=== PATIENT | female | born 1975 | race Caucasian/White ===

== ENCOUNTER 2016-12-01 14:09 | Inpatient (IN) | payer OTHER ==
[~2016-12-01 14:09] MED LIST: PIPERACILLIN-TAZOBACTAM 3.375 GM in DEXTROSE/WATER 1 50ML.BAG IVPB SCH
[2016-12-01] MEDS ORDERED: SODIUM CHLORIDE 0.9% 1,000 ML IV STA (15:56)
[2016-12-01] MEDS ORDERED: ONDANSETRON 4 MG/2 ML VIAL IVP STA (15:56)
[2016-12-01] MEDS ORDERED: HYDROmorphone 1 MG/ML 1 ML SYRINGE IVP STA ×2 (15:56→18:30)
--- NOTE | 2016-12-01 16:19 | ED ---
Abdominal Pain HPI - General Chief Complaint: Abdominal Pain Stated Complaint: Abd pain Time Seen by Provider: 12/01/16 15:52 Source: patient Mode of arrival: ambulatory Limitations: no limitations - History of Present Illness Initial Comments: 41-year-old female patient presents to emergency department today for complaints of abdominal pain that started 3 days ago. Patient states that the pain started as a vague pain around her umbilicus and has worsened over the last couple of days. Patient states that it is now in the right lower quadrant , she describes as severe, sharp pain that radiates around to her back. Patient states the pain increases with any movement, breathing, and states the area is very tender to the touch. Patient denies any fevers but states she has been feeling chilled. She is reporting nausea but no vomiting. Patient denies any constipation, diarrhea, hematuria, dysuria, urinary frequency, or urinary urgency. Patient denies any shortness of breath, chest pain, dizziness, weakness, or dizziness. She denies any history of abdominal surgery. - Related Data Home Medications Medication Instructions Recorded Confirmed Levothyroxine Sodium [Synthroid] 150 mcg PO DAILY 12/01/16 12/01/16 Allergies Allergy/AdvReac Type Severity Reaction Status Date / Time No Known Allergies Allergy Verified 12/01/16 17:26 Review of Systems ROS Statement: Those systems with pertinent positive or pertinent negative responses have been documented in the HPI. ROS Other: All systems not noted in ROS Statement are negative. Past Medical History Additional Past Medical History / Comment(s): graves disease History of Any Multi-Drug Resistant Organisms: None Reported Past Surgical History: Tubal Ligation Past Psychological History: No Psychological Hx Reported Smoking Status: Current every day smoker Past Alcohol Use History: Occasional Past Drug Use History: None Reported General Exam Limitations: no limitations General appearance: alert, in no apparent distress Head exam: Present: atraumatic, normocephalic, normal inspection Eye exam: Present: normal appearance, PERRL, EOMI. Absent: scleral icterus, conjunctival injection, periorbital swelling ENT exam: Present: normal exam, normal oropharynx, mucous membranes moist Neck exam: Present: normal inspection. Absent: tenderness, meningismus, lymphadenopathy Respiratory exam: Present: normal lung sounds bilaterally. Absent: respiratory distress, wheezes, rales, rhonchi, stridor Cardiovascular Exam: Present: regular rate, normal rhythm, normal heart sounds. Absent: systolic murmur, diastolic murmur, rubs, gallop, clicks GI/Abdominal exam: Present: soft, tenderness (Lower quadrant), rebound, normal bowel sounds. Absent: distended, guarding, rigid, organomegaly, hernia Expanded GI/Abdominal exam: Present: psoas sign, obturator sign, Rovsing's sign, tenderness at McBurney's Point Extremities exam: Present: normal inspection, full ROM, normal capillary refill. Absent: tenderness, pedal edema, joint swelling, calf tenderness Back exam: Present: normal inspection. Absent: tenderness, CVA tenderness (R), CVA tenderness (L) Neurological exam: Present: alert, oriented X3, CN II-XII intact Psychiatric exam: Present: normal affect, normal mood Skin exam: Present: warm, dry, intact, normal color. Absent: rash Course Vital Signs 12/01/16 12/01/16 14:19 18:04 Temperature 98.1 F Pulse Rate 114 H 95 Respiratory 20 16 Rate Blood Pressure 115/68 116/57 O2 Sat by Pulse 98 98 Oximetry Medical Decision Making - Medical Decision Making Dr. Soto did discuss case with Dr. Hope ritter and Dr. Meade. Patient only admitted to Dr. Nolasco's service and will be evaluated in the morning. Patient was started on antibiotics. - Lab Data Result diagrams: 12/01/16 16:20 12/01/16 16:20 Lab Results 12/01/16 12/01/16 12/01/16 Range/Units 16:20 16:20 16:20 WBC 14.2 H (3.8-10.6) k/uL RBC 3.79 L (3.80-5.40) m/uL Hgb 12.6 (11.4-16.0) gm/dL Hct 36.3 (34.0-46.0) % MCV 95.8 (80.0-100.0) fL MCH 33.3 (25.0-35.0) pg MCHC 34.7 (31.0-37.0) g/dL RDW 13.2 (11.5-15.5) % Plt Count 298 (150-450) k/uL Neutrophils % 80 % Lymphocytes % 12 % Monocytes % 5 % Eosinophils % 2 % Basophils % 0 % Neutrophils # 11.3 H (1.3-7.7) k/uL Lymphocytes # 1.7 (1.0-4.8) k/uL Monocytes # 0.6 (0-1.0) k/uL Eosinophils # 0.3 (0-0.7) k/uL Basophils # 0.0 (0-0.2) k/uL Sodium 140 (137-145) mmol/L Potassium 3.6 (3.5-5.1) mmol/L Chloride 106 (98-107) mmol/L Carbon Dioxide 21 L (22-30) mmol/L Anion Gap 13 mmol/L BUN 7 (7-17) mg/dL Creatinine 0.57 (0.52-1.04) mg/dL Est GFR (MDRD) Af Amer >60 (>60 ml/min/1.73 sqM) Est GFR (MDRD) Non-Af >60 (>60 ml/min/1.73 sqM) Glucose 106 H (74-99) mg/dL Plasma Lactic Acid Victor Hugo 0.7 (0.7-2.0) mmol/L Calcium 9.3 (8.4-10.2) mg/dL Total Bilirubin 0.8 (0.2-1.3) mg/dL AST 16 (14-36) U/L ALT 29 (9-52) U/L Alkaline Phosphatase 72 (38-126) U/L Total Protein 6.9 (6.3-8.2) g/dL Albumin 3.9 (3.5-5.0) g/dL Amylase 44 (30-110) U/L Lipase 78 (23-300) U/L Urine Color Urine Appearance (Clear) Urine pH (5.0-8.0) Ur Specific [place] (1.001-1.035) Urine Protein (Negative) Urine Glucose (UA) (Negative) Urine Ketones (Negative) Urine Blood (Negative) Urine Nitrite (Negative) Urine Bilirubin (Negative) Urine Urobilinogen (<2.0) mg/dL Ur Leukocyte Esterase (Negative) Urine RBC (0-5) /hpf Ur Squamous Epith Cells (0-4) /hpf Urine Bacteria (None) /hpf Urine Mucus (None) /hpf 12/01/16 Range/Units 16:20 WBC (3.8-10.6) k/uL RBC (3.80-5.40) m/uL Hgb (11.4-16.0) gm/dL Hct (34.0-46.0) % MCV (80.0-100.0) fL MCH (25.0-35.0) pg MCHC (31.0-37.0) g/dL RDW (11.5-15.5) % Plt Count (150-450) k/uL Neutrophils % % Lymphocytes % % Monocytes % % Eosinophils % % Basophils % % Neutrophils # (1.3-7.7) k/uL Lymphocytes # (1.0-4.8) k/uL Monocytes # (0-1.0) k/uL Eosinophils # (0-0.7) k/uL Basophils # (0-0.2) k/uL Sodium (137-145) mmol/L Potassium (3.5-5.1) mmol/L Chloride (98-107) mmol/L Carbon Dioxide (22-30) mmol/L Anion Gap mmol/L BUN (7-17) mg/dL Creatinine (0.52-1.04) mg/dL Est GFR (MDRD) Af Amer (>60 ml/min/1.73 sqM) Est GFR (MDRD) Non-Af (>60 ml/min/1.73 sqM) Glucose (74-99) mg/dL Plasma Lactic Acid Victor Hugo (0.7-2.0) mmol/L Calcium (8.4-10.2) mg/dL Total Bilirubin (0.2-1.3) mg/dL AST (14-36) U/L ALT (9-52) U/L Alkaline Phosphatase (38-126) U/L Total Protein (6.3-8.2) g/dL Albumin (3.5-5.0) g/dL Amylase (30-110) U/L Lipase (23-300) U/L Urine Color Dark Brown Urine Appearance Cloudy H (Clear) Urine pH 6.0 (5.0-8.0) Ur Specific [place] 1.026 (1.001-1.035) Urine Protein 1+ H (Negative) Urine Glucose (UA) Negative (Negative) Urine Ketones 1+ H (Negative) Urine Blood Moderate H (Negative) Urine Nitrite Negative (Negative) Urine Bilirubin 1+ H (Negative) Urine Urobilinogen 3.0 (<2.0) mg/dL Ur Leukocyte Esterase Trace H (Negative) Urine RBC 115 H (0-5) /hpf Ur Squamous Epith Cells 5 H (0-4) /hpf Urine Bacteria Rare H (None) /hpf Urine Mucus Many H (None) /hpf Disposition Clinical Impression: Diverticulitis of intestine with perforation and abscess Disposition: ADMITTED IP TO THIS HOSP Condition: Fair
[2016-12-01 16:50] LABS: Appearance,Urine Cloudy (Clear); Bacteria,Urine Rare /hpf; Bilirubin,Urine 1+ (Negative); Glucose,Urine (UA) Negative (Negative); Ketones,Urine 1+ (Negative); Leukocyte Esterase,Urine Trace (Negative); Mucus,Urine Many /hpf; Nitrite,Urine Negative (Negative); Particle Count 15888; Protein,Urine 1+ (Negative); RBC,Urine 115 /hpf (0-5); Specific Gravity,Urine 1.026 (1.001-1.035); Squamous Epithelial Cell,Urine 5 /hpf (0-4); UA Billing (MACRO vs. MICRO) MICRO
[2016-12-01 16:51] LABS: Basophils % (A) 0 %; CH 34.1; CHCM 35.7; Eosinophils # (A) 0.3 k/uL (0-0.7); Eosinophils % (A) 2 %; HCT 36.3 % (34.0-46.0); HDW 2.38; HGB 12.6 gm/dL (11.4-16.0); Luc # (Auto) 0.19; Luc % (Auto) 1; Lymphocytes # (A) 1.7 k/uL (1.0-4.8); Lymphocytes % (A) 12 %; MCH 33.3 pg (25.0-35.0); MCHC 34.7 g/dL (31.0-37.0); MCV 95.8 fL (80.0-100.0); Mean Platelet Volume 7.2; Monocytes # (A) 0.6 k/uL (0-1.0); Monocytes % (A) 5 %; Neutrophils # (A) 11.3 k/uL (1.3-7.7); Neutrophils % (A) 80 %; RBC 3.79 m/uL (3.80-5.40); RDW 13.2 % (11.5-15.5); WBC 14.2 k/uL (3.8-10.6); WBC (Perox) 14.83
[2016-12-01 16:53] LABS: ALT 29 U/L (9-52); AST 16 U/L (14-36); Alkaline Phosphatase 72 U/L (38-126); Amylase 44 U/L (30-110); Anion Gap 13 mmol/L; Blood Urea Nitrogen 7 mg/dL (7-17); Calcium 9.3 mg/dL (8.4-10.2); Carbon Dioxide 21 mmol/L (22-30); Chloride 106 mmol/L (98-107); Glucose 106 mg/dL (74-99); Non-African American GFR(MDRD) >60 (>60 ml/min/1.73 sqM); Potassium 3.6 mmol/L (3.5-5.1); Sodium 140 mmol/L (137-145); Total Bilirubin 0.8 mg/dL (0.2-1.3); Total Protein 6.9 g/dL (6.3-8.2)
[2016-12-01] MEDS ORDERED: RX INFO: IV CONTRAST WAS GIVEN 1 EACH MISC MISCELLANE PRN (17:01)
--- NOTE | 2016-12-01 17:20 | XR ---
EXAMINATION TYPE: XR KUB DATE OF EXAM: 12/01/2016 4:44 PM COMPARISON: NONE HISTORY: Abdominal pain TECHNIQUE: 2 views FINDINGS: Bowel gas pattern is normal. There is no sign of intestinal obstruction or pneumoperitoneum . Fecal pattern is normal. There are clips from tubal ligation. Lung bases are clear. IMPRESSION: Nonacute abdomen.
--- NOTE | 2016-12-01 18:02 | CT ---
EXAMINATION TYPE: CT abdomen pelvis w con DATE OF EXAM: 12/01/2016 5:50 PM COMPARISON: NONE HISTORY: Patient complains of RLQ pain. CT DLP: 1134 mGycm Automated exposure control for dose reduction was used. TECHNIQUE: Helical acquisition of images was performed from the lung bases through the pelvis. CONTRAST: Performed without Oral Contrast and with IV Contrast, patient injected with 100 mL of Omnipaque 300. FINDINGS: There is mild atelectasis at the posterior lung bases. There is no pleural effusion. There is a hiata l hernia. Heart size is normal. Liver spleen pancreas gallbladder appear normal. Bile ducts are not dilated. There is no adrenal mass . There is a 2 cm cyst in the upper pole right kidney posteriorly. There is a possible 3 mm calcifica tion within the cyst. This could be a calyceal diverticulum. The left kidney appears normal. There is no hydronephrosis. There are inflammatory changes around the cecum. There is a 3 cm area of complex air medial to the ce cum and anterior to the terminal ileum. This appears to be an extraluminal mass. The bladder distends smoothly. There is a 3 cm cyst on the right ovary. There are clips from tubal li gation. I see no definite free fluid in the pelvis. There is no retroperitoneal adenopathy. The bony structures are intact. There is narrowing of the L5-S1 disc space with spurring of the endplates. IMPRESSION: THERE IS A 3 CM COMPLEX COLLECTION OF AIR WITH SURROUNDING INFLAMMATORY CHANGES MEDIAL TO THE CECUM. THIS APPEARS TO BE EXTRALUMINAL AIR AND RELATED TO AN ABSCESS. I WOULD CONSIDER POSSIBILITY OF PERFOR ATED DIVERTICULUM WITH ABSCESS, I do not think this is an appendicitis since and fairly normal-appearing appendix appears to be prese nt inferiorly at the tip of the cecum. Surgical follow-up is recommended. There is a complex cystic fluid collection on the upper pole right kidney that appears to have delaye d contrast and is related to a calyceal diverticulum that contains a small calculus. Hiatal hernia.
[2016-12-01] MEDS ORDERED: PIPERACILLIN-TAZOBACTAM 3.375 GM in DEXTROSE/WATER 1 50ML.BAG IVPB STA (18:30)
[2016-12-01] MEDS ORDERED: NALOXONE 0.4 MG/ML 1 ML VIAL IV PRN (18:31)
[2016-12-01] MEDS ORDERED: LORazepam 2 MG/ML SYRINGE IV PRN (18:31)
[2016-12-01] MEDS ORDERED: ONDANSETRON 4 MG/2 ML VIAL IVP PRN (18:31)
[2016-12-01] MEDS: SODIUM CHLORIDE 0.9% 1,000 ML IV SCH (18:55)
[2016-12-01] MEDS: HYDROmorphone 1 MG/ML 1 ML SYRINGE IV PRN ×2 (18:58→22:06)
[2016-12-01] MEDS ORDERED: NICOTINE 21MG/24HR PATCH TRANSDERM STA (19:33)
[2016-12-01] MEDS: PIPERACILLIN-TAZOBACTAM 3.375 GM in DEXTROSE/WATER 1 50ML.BAG IVPB SCH (23:59)
[2016-12-02] MEDS: SODIUM CHLORIDE 0.9% 1,000 ML IV SCH (02:00)
[2016-12-02] MEDS: HYDROmorphone 1 MG/ML 1 ML SYRINGE IV PRN ×2 (05:33→08:44)
[2016-12-02] MEDS ORDERED: NICOTINE 14MG/24HR PATCH TRANSDERM STA (06:56)
[2016-12-02] MEDS: PANTOPRAZOLE 40 MG/10 ML VIAL IV SCH (07:03)
[2016-12-02] MEDS: PIPERACILLIN-TAZOBACTAM 3.375 GM in DEXTROSE/WATER 1 50ML.BAG IVPB SCH ×2 (08:37→15:10)
--- NOTE | 2016-12-02 09:42 | P.GSHP ---
<Berlin Wesley D - Last Filed: 12/02/16 09:21> History of Present Illness H&P Date: 12/02/16 Chief Complaint: Abdominal pain Patient is a 41-year-old white female, patient of Dr. Jamar Stewart in the outpatient setting, with medical history significant for Graves' disease and surgical history significant for tubal occasion, presenting to the emergency department with complaints of right lower quadrant abdominal pain onset approximately 3 days ago. Patient did have one episode of vomiting and diarrhea on Friday. Patient states she thought she had the flu. Labs on admission with evidence of leukocytosis with WBC of 14.2. No evidence of fevers. Heart rate 114 on admission. No history of fevers, chills, shortness of breath, or chest pain. CT of the abdomen and pelvis with evidence of a 3 cm complex collection of air with surrounding inflammatory changes medial to the cecum appearing to be extraluminal air and related to an abscess with possible diagnosis of perforated diverticulum with abscess. Patient also has evidence of a hiatal hernia. Patient was given a fluid bolus 1 L normal saline, started on IV antibiotics in the form of Zosyn, and admitted to the surgical unit. Upon examination, patient complains of right lower quadrant pain ,described as sharp, currently rated 6 out of 10 at rest, 10 out of 10 with movement. Patient denies chills, fevers, nausea, vomiting, shortness of breath, chest pain. Patient is passing flatus with no bowel movements. Morning labs pending. Past Medical History Additional Past Medical History / Comment(s): graves disease History of Any Multi-Drug Resistant Organisms: None Reported Past Surgical History: Tubal Ligation Past Psychological History: No Psychological Hx Reported Smoking Status: Current every day smoker Past Alcohol Use History: Occasional Past Drug Use History: None Reported Medications and Allergies Home Medications Medication Instructions Recorded Confirmed Type Levothyroxine Sodium [Synthroid] 150 mcg PO DAILY 12/01/16 12/01/16 History Allergies Allergy/AdvReac Type Severity Reaction Status Date / Time No Known Allergies Allergy Verified 12/01/16 17:26 Surgical - Exam Vital Signs Temp Pulse Resp BP Pulse Ox 98.1 F 114 H 20 115/68 98 12/01/16 14:19 12/01/16 14:19 12/01/16 14:19 12/01/16 14:19 12/01/16 14:19 GENERAL: Pt awake and alert, well-appearing, well-nourished, and in no acute distress. HEAD: Atraumatic, normocephalic. EYES: Pupils equal, round, and reactive to light, sclera anicteric, conjunctiva are normal. ENT: Moist mucous membranes. NECK:Normal range of motion, supple without lymphadenopathy or JVD. LUNGS: Breath sounds clear to auscultation bilaterally. No wheezes, rales, or rhonchi. HEART: Heart S1, S2, no S3 or S4. Regular rate and rhythm. No murmurs, rubs or gallops. ABDOMEN: Soft, moderate right lower quadrant tenderness, nondistended, normoactive bowel sounds. Positive guarding, positive rebound. No masses or organomegaly appreciated. EXTREMITIES: Palpable peripheral pulses. No edema. No calf tenderness. NEUROLOGICAL: Pt oriented x 3. No focal deficits noted. Strength and sensation grossly intact. PSYCH: Normal mood, normal affect. SKIN: Warm, dry, intact. Normal turgor. No rashes or lesions. Results - Labs 12/01/16 16:20 12/01/16 16:20 - Imaging Abdominal x-ray: report reviewed (Nonacute abdomen) CT scan - abdomen: report reviewed CT scan - pelvis: report reviewed Assessment and Plan Plan: Impression: 1. Right lower quadrant abdominal pain suspect secondary to perforated diverticulum with abscess. 2. Hiatal hernia. 3. Possible sepsis. 4. Nicotine dependence. 5. History of Graves' disease. 6. History of tubal ligation. Plan: 1. Keep patient nothing by mouth. Continue IV antibiotics. Continue IV fluids. Continue GI prophylaxis. Continue supportive treatment pain management. Dr. Stewart has been consulted for medical management. The above impression and plan have been discussed and directed by Dr. Ramirez. [place] VENTURA acting as scribe for Dr. Ramirez. <Carrillo Ramirez - Last Filed: 12/02/16 10:02> Surgical - Exam Vital Signs Temp Pulse Resp BP Pulse Ox 98.1 F 114 H 20 115/68 98 12/01/16 14:19 12/01/16 14:19 12/01/16 14:19 12/01/16 14:19 12/01/16 14:19 Results - Labs 12/02/16 09:20 12/02/16 09:20 Abnormal Lab Results - Last 24 Hours (Table) 12/02/16 12/02/16 Range/Units 09:20 09:20 WBC 12.6 H (3.8-10.6) k/uL RBC 3.43 L (3.80-5.40) m/uL Hct 33.4 L (34.0-46.0) % Neutrophils # 10.1 H (1.3-7.7) k/uL Chloride 108 H (98-107) mmol/L BUN 6 L (7-17) mg/dL Diabetes panel 12/02/16 Range/Units 09:20 Sodium 140 (137-145) mmol/L Potassium 4.0 (3.5-5.1) mmol/L Chloride 108 H (98-107) mmol/L Carbon Dioxide 24 (22-30) mmol/L BUN 6 L (7-17) mg/dL Creatinine 0.62 (0.52-1.04) mg/dL Glucose 92 (74-99) mg/dL Calcium 8.5 (8.4-10.2) mg/dL Calcium panel 12/02/16 Range/Units 09:20 Calcium 8.5 (8.4-10.2) mg/dL Pituitary panel 12/02/16 Range/Units 09:20 Sodium 140 (137-145) mmol/L Potassium 4.0 (3.5-5.1) mmol/L Chloride 108 H (98-107) mmol/L Carbon Dioxide 24 (22-30) mmol/L BUN 6 L (7-17) mg/dL Creatinine 0.62 (0.52-1.04) mg/dL Glucose 92 (74-99) mg/dL Calcium 8.5 (8.4-10.2) mg/dL Adrenal panel 12/02/16 Range/Units 09:20 Sodium 140 (137-145) mmol/L Potassium 4.0 (3.5-5.1) mmol/L Chloride 108 H (98-107) mmol/L Carbon Dioxide 24 (22-30) mmol/L BUN 6 L (7-17) mg/dL Creatinine 0.62 (0.52-1.04) mg/dL Glucose 92 (74-99) mg/dL Calcium 8.5 (8.4-10.2) mg/dL Assessment and Plan Plan: The patient has peritoneal signs with rebound tenderness and guarding. She will undergo laparoscopic exam today. I discussed with her that she may need exploratory laparotomy. We will plan for laparoscopic appendectomy.
[2016-12-02 09:43] LABS: Basophils # (A) 0.1 k/uL (0-0.2); Basophils % (A) 0 %; CH 33.8; Eosinophils # (A) 0.3 k/uL (0-0.7); Eosinophils % (A) 3 %; HCT 33.4 % (34.0-46.0); HDW 2.49; HGB 11.4 gm/dL (11.4-16.0); Luc # (Auto) 0.21; Luc % (Auto) 2; Lymphocytes # (A) 1.4 k/uL (1.0-4.8); Lymphocytes % (A) 11 %; MCH 33.2 pg (25.0-35.0); MCHC 34.2 g/dL (31.0-37.0); MCV 97.1 fL (80.0-100.0); Monocytes # (A) 0.4 k/uL (0-1.0); Monocytes % (A) 3 %; Neutrophils # (A) 10.1 k/uL (1.3-7.7); Neutrophils % (A) 80 %; RBC 3.43 m/uL (3.80-5.40); RDW 12.9 % (11.5-15.5); WBC 12.6 k/uL (3.8-10.6); WBC (Perox) 13.66
[2016-12-02 09:54] LABS: Anion Gap 8 mmol/L; Blood Urea Nitrogen 6 mg/dL (7-17); Calcium 8.5 mg/dL (8.4-10.2); Carbon Dioxide 24 mmol/L (22-30); Chloride 108 mmol/L (98-107); Glucose 92 mg/dL (74-99); Non-African American GFR(MDRD) >60 (>60 ml/min/1.73 sqM); Sodium 140 mmol/L (137-145)
[2016-12-02] MEDS ORDERED: IV FLUID CONTINUATION 1,000 ML IV ONE (10:35)
[2016-12-02] MEDS ORDERED: HEPARIN SODIUM,PORCINE 5,000 UNIT/ML 1 ML VIAL SQ ONE (11:04)
[2016-12-02] MEDS ORDERED: ROCURONIUM BROMIDE 10 MG/ML 10 ML VIAL IV ONE (11:09)
[2016-12-02] MEDS ORDERED: LIDOCAINE 1% INJ 10MG/ML (20 ML MDV) ONE (11:09)
[2016-12-02] MEDS ORDERED: NEOSTIGMINE 1 MG/ML 10 ML VIAL ONE (11:09)
[2016-12-02] MEDS ORDERED: SUCCINYLCHOLINE CHLORIDE 100 MG/5 ML SYR IV ONE (11:09)
[2016-12-02] MEDS ORDERED: GLYCOPYRROLATE 0.2 MG/ML 2 ML VIAL ONE (11:09)
[2016-12-02] MEDS ORDERED: fentaNYL (PF) 50 MCG/ML 2 ML AMP ONE (11:09)
[2016-12-02] MEDS ORDERED: MIDAZOLAM 2 MG/2 ML VIAL ONE (11:09)
[2016-12-02] MEDS ORDERED: BUPIVACAIN-EPI 0.25%-1:200,000 30 ML VIAL SQ ONE (11:29)
[2016-12-02] MEDS ORDERED: LACTATED RINGERS 1,000 ML IV ONE (11:44)
--- NOTE | 2016-12-02 12:41 | P.OP ---
Date of Procedure: 12/02/16 Preoperative Diagnosis: Appendicitis with abscess Postoperative Diagnosis: Transmural cecal abscess Procedure(s) Performed: Diagnostic laparoscopy Laparoscopic right colectomy Partial omentectomy Anesthesia: TIM Surgeon: Carrillo Ramirez Estimated Blood Loss (ml): 10 Pathology: other (Cecum, omentum) Condition: stable Disposition: PACU Description of Procedure: The patient's placed on the operative table in the supine position. She received general anesthesia. Her abdomen was prepped and draped usual sterile fashion. An infraumbilical skin incision was made and then using a pair of Lagrange clamps the fascia was grasped. The Veress needle was then placed into the. Cavity. Position of the Veress needle was confirmed with positive drop test. After adequate insufflation a 5 mm trocar was placed into the perineal cavity. And then the laparoscope was placed into the pleural cavity. Next a 5 mm trocar was placed in the supraumbilical position and a 10 mm trocar was placed in the midline epigastric position. The cecum was visualized. The cecum appeared to be inflamed. The cecum was then grasped and then rotated medially. The white line of Toldt was divided. The appendix was visualized. The appendix did not appear to be significantly inflamed. The year appeared to be a abscess within the wall of the cecum near the base the appendix. At this point the right colon was mobilized by dividing the white line of Toldt's. And then the terminal ileum was also mobilized by dividing any adhesions to the terminal ileum. The trochars are withdrawn and then a small skin incision was extended at the umbilical trocar. And then the fascia was divided. The terminal ileum and cecum were brought up into the wound. There appeared to be significant inflammatory changes in the cecal wall. The terminal ileum was then transected with the JUAN stapler. And then the right colon was transected with a GI stapler. Using the Harmonic scissors the right mesial colon was divided. The specimen was sent to pathology. And then a [id number] functional end-to-end staple anastomosis created between the terminal ileum and's right colon. A 3-0 GI silk sutures placed as a crotch stitch. There is no bleeding of the mesentery. This point the anastomosis was placed back into the peritoneal cavity. The fascia was closed with #1 Vicryl. Skin closed interrupted 3-0 Monocryl suture. Dermabond dressings was applied. Patient was sent to recovery in stable condition.
[2016-12-02] MEDS: HYDROmorphone 1 MG/ML 1 ML SYRINGE IVP ONE ×2 (12:59→13:20)
[2016-12-02] MEDS: KETOROLAC 30 MG/ML 1 ML VIAL IVP PRN (13:25)
[2016-12-02] MEDS ORDERED: HYDROmorphone 1 MG/ML 1 ML SYRINGE IVP ONE (13:31)
[2016-12-02] MEDS: ONDANSETRON 4 MG/2 ML VIAL IVP PRN (13:41)
[2016-12-02] MEDS: D5-0.45% NACL WITH KCL 20MEQ/L 1,000 ML IV SCH ×2 (15:06→23:25)
[2016-12-02] MEDS: HYDROmorphone 1 MG/ML 1 ML SYRINGE IVP PRN ×3 (16:25→23:06)
[2016-12-02] MEDS: HEPARIN SODIUM,PORCINE 5,000 UNIT/ML 1 ML VIAL SQ SCH (16:28)
[2016-12-02] MEDS: METOCLOPRAMIDE 5 MG/ML 2 ML VIAL IVP SCH (16:29)
[2016-12-02] MEDS: ALVIMOPAN 12 MG CAPSULE PO SCH (21:32)
[2016-12-03] MEDS: HEPARIN SODIUM,PORCINE 5,000 UNIT/ML 1 ML VIAL SQ SCH ×4 (00:46→23:42)
[2016-12-03] MEDS: PIPERACILLIN-TAZOBACTAM 3.375 GM in DEXTROSE/WATER 1 50ML.BAG IVPB SCH ×4 (00:47→23:42)
[2016-12-03] MEDS: METOCLOPRAMIDE 5 MG/ML 2 ML VIAL IVP SCH ×5 (00:47→23:42)
[2016-12-03] MEDS: HYDROmorphone 1 MG/ML 1 ML SYRINGE IVP PRN ×7 (03:11→23:43)
[2016-12-03] MEDS: KETOROLAC 30 MG/ML 1 ML VIAL IVP PRN (05:32)
[2016-12-03] MEDS: D5-0.45% NACL WITH KCL 20MEQ/L 1,000 ML IV SCH ×3 (05:52→20:52)
[2016-12-03] MEDS: LEVOTHYROXINE 75 MCG TAB PO SCH (06:17)
[2016-12-03 07:34] LABS: Basophils % (A) 0 %; CH 33.3; CHCM 34.2; Eosinophils # (A) 0.1 k/uL (0-0.7); Eosinophils % (A) 1 %; HCT 31.5 % (34.0-46.0); HGB 10.8 gm/dL (11.4-16.0); Luc # (Auto) 0.16; Luc % (Auto) 2; Lymphocytes # (A) 1.2 k/uL (1.0-4.8); Lymphocytes % (A) 11 %; MCH 33.4 pg (25.0-35.0); MCHC 34.2 g/dL (31.0-37.0); MCV 97.8 fL (80.0-100.0); Mean Platelet Volume 7.5; Monocytes # (A) 0.5 k/uL (0-1.0); Monocytes % (A) 5 %; Neutrophils # (A) 8.6 k/uL (1.3-7.7); Neutrophils % (A) 82 %; RBC 3.22 m/uL (3.80-5.40); WBC 10.5 k/uL (3.8-10.6); WBC (Perox) 10.97
[2016-12-03] MEDS: NICOTINE 21MG/24HR PATCH TRANSDERM SCH (07:35)
[2016-12-03] MEDS: PANTOPRAZOLE 40 MG/10 ML VIAL IV SCH (07:35)
[2016-12-03] MEDS: ALVIMOPAN 12 MG CAPSULE PO SCH ×2 (07:35→20:59)
[2016-12-03 07:51] LABS: Anion Gap 9 mmol/L; Blood Urea Nitrogen 6 mg/dL (7-17); Calcium 8.4 mg/dL (8.4-10.2); Carbon Dioxide 23 mmol/L (22-30); Chloride 107 mmol/L (98-107); Glucose 135 mg/dL (74-99); Magnesium 1.9 mg/dL (1.6-2.3); Non-African American GFR(MDRD) >60 (>60 ml/min/1.73 sqM); Phosphorous 2.9 mg/dL (2.5-4.5); Potassium 4.3 mmol/L (3.5-5.1); Sodium 139 mmol/L (137-145)
[2016-12-03] MEDS: ONDANSETRON 4 MG/2 ML VIAL IVP PRN ×2 (08:20→15:01)
--- NOTE | 2016-12-03 15:09 | P.PN ---
Subjective 41-year-old female being seen in follow-up visit for medical management at the request of the attending in a patient who is postop December 02 laparoscopic right colectomy for appendicitis with abscess. Patient's initial presentation to the emergency room with right lower quadrant abdominal pain onset 3 days prior. Patient stated that she felt nauseated did have an emesis and frequent loose stools on Friday. She thought perhaps she had the flu. Admission leukocytosis was elevated at 14 point 2 there was no fever. And a CAT scan of the abdomen pelvis done in the emergency room did show a 3 cm complex collection of fluid with surrounding inflammatory changes medial to the cecum possible diagnosis of perforated diverticulum with an abscess. Patient was admitted to the services of surgical service with a request of medical management Objective - Vital Signs Vital signs: Vital Signs Temp 97.1 F L 12/03/16 14:55 Pulse 103 H 12/03/16 14:55 Resp 18 12/03/16 14:55 BP 108/57 12/03/16 14:55 Pulse Ox 93 L 12/03/16 14:55 Intake & Output 12/02/16 12/03/16 12/03/16 18:59 06:59 18:59 Intake Total 1730 725 480 Output Total 115 100 100 Balance 1615 625 380 Weight 67.261 kg 67.261 kg 67.261 kg Intake: IV 1250 Intake, IV Titration 725 Amount D5-0.45% NaCl with KCl 725 20Meq/l 1,000 ml @ 125 mls/hr IV .Q8H [facility] Rx#: [id number] Oral 480 480 Output: Urine 100 100 100 Estimated Blood Loss 15 Other: Voiding Method Toilet # Voids 1 1 1 - Exam Physical exam 41-year-old female resting in bed states pain medication is effective for pain control Lungs essentially clear with adequate air sats are documented 91% on room air no cough noted no shortness of breath Heart S1-S2 audible regular Abdomen surgical site dry no redness soft surgical tenderness with light palpitation bowel tones present states passing gas no stool urinating no difficulty Extremities no edema noted - Labs CBC & Chem 7: 12/03/16 06:53 12/03/16 06:53 Labs: Abnormal Lab Results - Last 24 Hours (Table) 12/03/16 12/03/16 Range/Units 06:53 06:53 RBC 3.22 L (3.80-5.40) m/uL Hgb 10.8 L (11.4-16.0) gm/dL Hct 31.5 L (34.0-46.0) % Neutrophils # 8.6 H (1.3-7.7) k/uL BUN 6 L (7-17) mg/dL Glucose 135 H (74-99) mg/dL Microbiology - Last 24 Hours (Table) 12/02/16 10:30 Urine Culture - Preliminary Urine,Voided Assessment and Plan Plan: Impression Present on admission right lower quadrant abdominal pain onset 3 days prior suspect due to perforated diverticulum with abscess Postop 12/02/2016 laparoscopic right cholectomy partial omentum for transmural cdcal abscess Current every day smoker Graves' disease Computed tomography scan abdomen pelvis hiatal hernia present on admission leukocytosis suspect reactive Plan Continue postop surgical care per surgical service Pain control Resume home meds as appropriate DVT and GI prophylaxis IV antibiotics as ordered Zosyn IV fluid as ordered keep hydrated Clear liquid diet Further recommendations pending will follow The above dictated assessment and findings were discussed with dr bates . Impression and the plan of care have been dictated as directed. Hien Rader nurse practitioner acting as a scribe for dr bates
--- NOTE | 2016-12-03 16:20 | P.PN ---
Subjective Patient is a 41-year-old white female admitted with right lower quadrant abdominal pain with evidence of transmural cecal abscess status post laparoscopic right colectomy with partial omentectomy on 12/02/2016. Patient is evaluated on the surgical unit she is postop day #1. Patient is feeling better. Patient complains of some "incisional soreness." Denies chills, fevers , nausea, vomiting, shortness of breath or chest pain. Patient reports flatus without bowel movement. Patient has been up ambulating to bathroom. Patient is urinating without difficulty. Patient is tolerating a clear liquid diet. Afebrile. Hemodynamically stable. No evidence of leukocytosis. Hemoglobin stable at 10.8. Objective - Vital Signs Vital signs: Vital Signs Temp 97.1 F L 12/03/16 14:55 Pulse 103 H 12/03/16 14:55 Resp 18 12/03/16 14:55 BP 108/57 12/03/16 14:55 Pulse Ox 93 L 12/03/16 14:55 Intake & Output 12/02/16 12/03/16 12/03/16 18:59 06:59 18:59 Intake Total 1730 725 480 Output Total 115 100 100 Balance 1615 625 380 Weight 67.261 kg 67.261 kg 67.261 kg Intake: IV 1250 Intake, IV Titration 725 Amount D5-0.45% NaCl with KCl 725 20Meq/l 1,000 ml @ 125 mls/hr IV .Q8H [facility] Rx#: [id number] Oral 480 480 Output: Urine 100 100 100 Estimated Blood Loss 15 Other: Voiding Method Toilet # Voids 1 1 1 - Exam GENERAL: Pt awake and alert, well-appearing, well-nourished, and in no acute distress. HEAD: Atraumatic, normocephalic. EYES: Pupils equal, round, and reactive to light, sclera anicteric, conjunctiva are normal. ENT: Moist mucous membranes. LUNGS: Breath sounds clear to auscultation bilaterally. No wheezes, rales, or rhonchi. HEART: Heart S1, S2, no S3 or S4. Regular rate and rhythm. No murmurs, rubs or gallops. ABDOMEN: Soft, mild incisional tenderness, nondistended, active bowel sounds. No rebound. No guarding. Laparoscopic surgical incision dry and intact. EXTREMITIES: Palpable peripheral pulses. No edema. No calf tenderness. NEUROLOGICAL: Pt oriented x 3. No focal deficits noted. Strength and sensation grossly intact. PSYCH: Normal mood, normal affect. SKIN: Warm, dry, intact. Normal turgor. No rashes or lesions. - Labs CBC & Chem 7: 12/03/16 06:53 12/03/16 06:53 Labs: Abnormal Lab Results - Last 24 Hours (Table) 12/03/16 12/03/16 Range/Units 06:53 06:53 RBC 3.22 L (3.80-5.40) m/uL Hgb 10.8 L (11.4-16.0) gm/dL Hct 31.5 L (34.0-46.0) % Neutrophils # 8.6 H (1.3-7.7) k/uL BUN 6 L (7-17) mg/dL Glucose 135 H (74-99) mg/dL Microbiology - Last 24 Hours (Table) 12/02/16 10:30 Urine Culture - Preliminary Urine,Voided Assessment and Plan Plan: Impression: 1. Transmural cecal abscess status post diagnostic laparoscopically; laparoscopic right colectomy with partial omentectomy on 12/02/2016. 2. Hiatal hernia. 3. Possible sepsis. 4. Nicotine dependence. 5. History of Graves' disease. 6. History of tubal ligation. Plan: 1. Continue clear liquid diet. Continue IV antibiotics. Continue IV fluids. Continue GI prophylaxis. Continue supportive treatment pain management. Continue to follow medical service. The above impression and plan have been discussed and directed by Dr. Ramirez. [place] VENTURA acting as scribe for Dr. Ramirez.
[2016-12-04] MEDS: HYDROmorphone 1 MG/ML 1 ML SYRINGE IVP PRN (03:11)
[2016-12-04] MEDS: D5-0.45% NACL WITH KCL 20MEQ/L 1,000 ML IV SCH ×3 (06:15→23:45)
[2016-12-04] MEDS: METOCLOPRAMIDE 5 MG/ML 2 ML VIAL IVP SCH ×4 (06:17→23:45)
[2016-12-04] MEDS: LEVOTHYROXINE 75 MCG TAB PO SCH (06:17)
[2016-12-04 07:11] LABS: Basophils # (A) 0.2 k/uL (0-0.2); Basophils % (A) 2 %; CH 33.2; CHCM 34.4; Eosinophils # (A) 0.2 k/uL (0-0.7); Eosinophils % (A) 3 %; HCT 29.6 % (34.0-46.0); HDW 2.64; HGB 10.2 gm/dL (11.4-16.0); Luc # (Auto) 0.18; Luc % (Auto) 2; Lymphocytes # (A) 0.9 k/uL (1.0-4.8); Lymphocytes % (A) 11 %; MCH 33.4 pg (25.0-35.0); MCHC 34.5 g/dL (31.0-37.0); MCV 97.1 fL (80.0-100.0); Mean Platelet Volume 7.9; Monocytes # (A) 0.3 k/uL (0-1.0); Monocytes % (A) 4 %; Neutrophils # (A) 6.6 k/uL (1.3-7.7); Neutrophils % (A) 79 %; RBC 3.05 m/uL (3.80-5.40); RDW 12.9 % (11.5-15.5); WBC 8.4 k/uL (3.8-10.6); WBC (Perox) 9.88
[2016-12-04 07:27] LABS: Anion Gap 8 mmol/L; Blood Urea Nitrogen 3 mg/dL (7-17); Calcium 8.6 mg/dL (8.4-10.2); Carbon Dioxide 27 mmol/L (22-30); Chloride 105 mmol/L (98-107); Glucose 129 mg/dL (74-99); Non-African American GFR(MDRD) >60 (>60 ml/min/1.73 sqM); Potassium 4.6 mmol/L (3.5-5.1); Sodium 140 mmol/L (137-145)
[2016-12-04] MEDS: ONDANSETRON 4 MG/2 ML VIAL IVP PRN (07:51)
[2016-12-04] MEDS: PANTOPRAZOLE 40 MG/10 ML VIAL IV SCH (07:52)
[2016-12-04] MEDS: NICOTINE 21MG/24HR PATCH TRANSDERM SCH (07:52)
[2016-12-04] MEDS: ALVIMOPAN 12 MG CAPSULE PO SCH ×2 (07:52→19:38)
[2016-12-04] MEDS: HEPARIN SODIUM,PORCINE 5,000 UNIT/ML 1 ML VIAL SQ SCH ×3 (07:52→23:45)
[2016-12-04] MEDS: PIPERACILLIN-TAZOBACTAM 3.375 GM in DEXTROSE/WATER 1 50ML.BAG IVPB SCH ×3 (09:19→23:46)
[2016-12-04] MEDS ORDERED: HYDROcodone/APAP 5-325MG 1 EACH TAB PO PRN (10:39)
[2016-12-04] MEDS: HYDROcodone/APAP 5-325MG 1 EACH TAB PO PRN ×4 (11:01→23:46)
--- NOTE | 2016-12-04 13:43 | CONS ---
DATE OF CONSULTATION: SUBJECTIVE: This is a 41-year-old white female on consultation for medical management. She has history of Graves' disease and right lower quadrant pain 3 days ago with vomiting. She had a CAT scan of the abdomen in the ER that showed a 3 cm complex mass or inflammatory changes around an abscess area in the cecum area versus diverticulum. She has been sent to surgery. She had this area removed and her bowels put back together. There is no colostomy. She is started on IV Zosyn. She has hypothyroidism at home for which she takes thyroid medicine. She has a history of Graves' disease. She had tubal ligation in the past. She is a current every day smoker. No alcohol. No illicit drugs. HOME MEDICATIONS: Levothyroxine 150 mcg daily. ALLERGIES: No known drug allergies. Temp 98.1, pulse is 114, respiratory rate 18 to 20, blood pressure 150/68, O2 is 98%. White count elevated. She is will-appearing, in no acute distress. OPHTHALMOLOGIC: Pupils equal, round and react to light and accommodation. ENT: External ear canals within normal limits. Lungs show essentially no rales, rhonchi or wheeze. HEART: S1, S2. ABDOMEN: Soft, some tenderness to palpation around the wound site. EXTREMITIES: No cyanosis, clubbing, edema. NEUROLOGIC: Alert and oriented x3. PSYCHIATRIC: Fair mood and affect. . ASSESSMENT: 1. Right lower quadrant abdominal pain secondary to perforated diverticulum and abscess, hiatal hernia or possible sepsis. 2. Nicotine addiction. 3. Graves' disease. 4. Tubal ligation. Continue with current treatments and surgical postop care.
[2016-12-04 14:35] VITALS: BMI 24.6
--- NOTE | 2016-12-04 14:40 | P.PN ---
Subjective Patient is a 41-year-old white female admitted with right lower quadrant abdominal pain with evidence of transmural cecal abscess status post laparoscopic right colectomy with partial omentectomy on 12/02/2016. Patient is evaluated on the surgical unit she is postop day #2. Patient complains of slight nausea without vomiting. Patient is reporting productive cough with brownish phlegm. Denies chills, fevers, shortness of breath or chest pain. Patient reports flatus without bowel movement. Patient has been up ambulating to bathroom and up in shower. Patient is urinating without difficulty. Patient is tolerating a clear liquid diet. Afebrile. Hemodynamically stable. No evidence of leukocytosis. Hemoglobin stable at 10.2. Objective - Vital Signs Vital signs: Vital Signs Temp 97.5 F L 12/04/16 14:03 Pulse 95 12/04/16 14:03 Resp 17 12/04/16 14:03 BP 130/72 12/04/16 14:03 Pulse Ox 92 L 12/04/16 14:03 Intake & Output 12/03/16 12/04/16 12/04/16 18:59 06:59 18:59 Intake Total 480 Output Total 200 100 Balance 280 -100 Weight 67.261 kg 67.261 kg 67.261 kg Intake: Oral 480 Output: Urine 200 100 Other: Voiding Method Toilet Toilet Toilet # Voids 1 1 - Exam GENERAL: Pt awake and alert, well-appearing, well-nourished, and in no acute distress. HEAD: Atraumatic, normocephalic. EYES: Pupils equal, round, and reactive to light, sclera anicteric, conjunctiva are normal. ENT: Moist mucous membranes. LUNGS: Breath sounds with scattered rhonchi to auscultation bilaterally. HEART: Heart S1, S2, no S3 or S4. Regular rate and rhythm. No murmurs, rubs or gallops. ABDOMEN: Soft, mild incisional tenderness, nondistended, active bowel sounds. No rebound. No guarding. Laparoscopic surgical incision dry and intact. EXTREMITIES: Palpable peripheral pulses. No edema. No calf tenderness. NEUROLOGICAL: Pt oriented x 3. No focal deficits noted. Strength and sensation grossly intact. PSYCH: Normal mood, normal affect. SKIN: Warm, dry, intact. Normal turgor. No rashes or lesions. - Labs CBC & Chem 7: 03/29/17 06:46 12/04/16 06:46 Labs: Abnormal Lab Results - Last 24 Hours (Table) 12/04/16 12/04/16 Range/Units 06:46 06:46 RBC 3.05 L (3.80-5.40) m/uL Hgb 10.2 L (11.4-16.0) gm/dL Hct 29.6 L (34.0-46.0) % Lymphocytes # 0.9 L (1.0-4.8) k/uL BUN 3 L (7-17) mg/dL Glucose 129 H (74-99) mg/dL Microbiology - Last 24 Hours (Table) 12/02/16 10:30 Urine Culture - Final Urine,Voided Assessment and Plan Plan: Impression: 1. Transmural cecal abscess status post diagnostic laparoscopically; laparoscopic right colectomy with partial omentectomy on 12/02/2016. 2. Hiatal hernia. 3. Possible sepsis. 4. Nicotine dependence. 5. History of Graves' disease. 6. History of tubal ligation. Plan: 1. Continue clear liquid diet. Continue IV antibiotics. Will add Xopenex 4 times a day. Continue IV fluids. Continue GI prophylaxis. Continue supportive treatment pain management. Continue incentive spirometry 10 times an hour while awake. Continue to follow medical service. The above impression and plan have been discussed and directed by Dr. Ramirez. [place] VENTURA acting as scribe for Dr. Ramirez.
[2016-12-04] MEDS: LEVALBUTEROL NEB 1.25 MG/3 ML AMP INHALATION SCH (20:55)
[2016-12-04 22:55] VITALS: RESP 16
[2016-12-05] MEDS: HYDROcodone/APAP 5-325MG 1 EACH TAB PO PRN ×3 (03:44→12:46)
[2016-12-05] MEDS: LEVOTHYROXINE 75 MCG TAB PO SCH (05:24)
[2016-12-05] MEDS: METOCLOPRAMIDE 5 MG/ML 2 ML VIAL IVP SCH ×2 (05:24→12:47)
[2016-12-05] MEDS: D5-0.45% NACL WITH KCL 20MEQ/L 1,000 ML IV SCH (05:24)
[2016-12-05 07:37] LABS: Basophils % (A) 1 %; CH 33.3; CHCM 34.5; Eosinophils # (A) 0.2 k/uL (0-0.7); Eosinophils % (A) 5 %; HDW 2.68; HGB 9.1 gm/dL (11.4-16.0); Luc # (Auto) 0.13; Luc % (Auto) 3; Lymphocytes # (A) 0.8 k/uL (1.0-4.8); Lymphocytes % (A) 16 %; MCH 32.7 pg (25.0-35.0); MCHC 33.7 g/dL (31.0-37.0); MCV 96.9 fL (80.0-100.0); Mean Platelet Volume 7.3; Monocytes # (A) 0.3 k/uL (0-1.0); Monocytes % (A) 5 %; Neutrophils # (A) 3.6 k/uL (1.3-7.7); Neutrophils % (A) 71 %; RBC 2.79 m/uL (3.80-5.40); WBC (Perox) 5.59
[2016-12-05 07:38] VITALS: BP 101/56; TEMP 97
[2016-12-05] MEDS: NICOTINE 21MG/24HR PATCH TRANSDERM SCH (07:47)
[2016-12-05] MEDS: PIPERACILLIN-TAZOBACTAM 3.375 GM in DEXTROSE/WATER 1 50ML.BAG IVPB SCH (07:48)
[2016-12-05] MEDS: HEPARIN SODIUM,PORCINE 5,000 UNIT/ML 1 ML VIAL SQ SCH (07:48)
[2016-12-05] MEDS: PANTOPRAZOLE 40 MG/10 ML VIAL IV SCH (07:48)
[2016-12-05] MEDS: ALVIMOPAN 12 MG CAPSULE PO SCH (07:49)
[2016-12-05 07:54] LABS: Anion Gap 5 mmol/L; Blood Urea Nitrogen 5 mg/dL (7-17); Calcium 8.4 mg/dL (8.4-10.2); Carbon Dioxide 26 mmol/L (22-30); Chloride 108 mmol/L (98-107); Glucose 126 mg/dL (74-99); Non-African American GFR(MDRD) >60 (>60 ml/min/1.73 sqM); Potassium 4.1 mmol/L (3.5-5.1); Sodium 139 mmol/L (137-145)
[2016-12-05] MEDS: LEVALBUTEROL NEB 1.25 MG/3 ML AMP INHALATION SCH ×2 (07:56→13:39)
[2016-12-05] MEDS: ONDANSETRON 4 MG/2 ML VIAL IVP PRN (08:22)
--- NOTE | 2016-12-05 09:02 | P.PN ---
Subjective 41-year-old female being seen this morning in rounds. Patient states she had a bowel movement this morning and 1 last night tolerating a clear liquid diet. Patient is postop done on December 02 partial omentectomy laparoscopic right colectomy for a transmural cecal abscess patient additionally states that she's been up ambulating in the rene this morning urinating no difficulty the white count down to 5 temp is 97 Patient does report a nausea sensation associated with "seemed to get queasy feeling after I take my medication. Did note the patient is taking 2 Belcher every 4 hours. Objective - Vital Signs Vital signs: Vital Signs Temp 97.0 F L 12/05/16 07:37 Pulse 80 12/05/16 08:08 Resp 16 12/05/16 07:37 BP 101/56 12/05/16 07:37 Pulse Ox 96 12/05/16 07:37 Intake & Output 12/04/16 12/05/16 12/05/16 18:59 06:59 18:59 Intake Total 360 200 Output Total 200 Balance 160 200 Weight 67.261 kg Intake: Oral 360 200 Output: Urine 200 Other: Voiding Method Toilet Toilet Toilet # Voids 1 1 - Exam Physical exam 41-year-old female pleasant cooperative oriented 3 standing up at the bedside. States pain medication effective for pain control Lungs essentially clear with adequate air movement no wheezing or rhonchi on room air no cough noted no shortness of breath heart S1-S2 audible and regular denying chest pain no murmur Abdomen soft nontender surgical sites benign no redness. Patient does report a sensation of nausea no active emesis did have a bowel movement this morning States urinating no difficulty extremities no edema noted - Labs CBC & Chem 7: 12/05/16 07:13 12/05/16 07:13 Labs: Abnormal Lab Results - Last 24 Hours (Table) 12/05/16 12/05/16 Range/Units 07:13 07:13 RBC 2.79 L (3.80-5.40) m/uL Hgb 9.1 L (11.4-16.0) gm/dL Hct 27.0 L (34.0-46.0) % Lymphocytes # 0.8 L (1.0-4.8) k/uL Chloride 108 H (98-107) mmol/L BUN 5 L (7-17) mg/dL Glucose 126 H (74-99) mg/dL Assessment and Plan Plan: Impression Present on admission right lower quadrant abdominal pain onset 3 days prior suspect due to perforated diverticulum with abscess Postop 12/02/2016 laparoscopic right cholectomy partial omentum for transmural cdcal abscess Current every day smoker Graves' disease Computed tomography scan abdomen pelvis hiatal hernia present on admission leukocytosis suspect reactive Plan Continue postop surgical care per surgical service Pain control Resume home meds as appropriate DVT and GI prophylaxis IV antibiotics as ordered Zosyn IV fluid as ordered keep hydrated Advanced to a full diet Increase the use of the incentive spirometer Further recommendations pending will follow The above dictated assessment and findings were discussed with dr bates . Impression and the plan of care have been dictated as directed. Hien Rader nurse practitioner acting as a scribe for dr bates
[2016-12-05] MEDS ORDERED: D5-0.45% NACL WITH KCL 20MEQ/L 1,000 ML IV SCH (12:15)
--- NOTE | 2016-12-05 13:26 | P.DS ---
Providers Date of admission: 12/01/16 18:31 Expected date of discharge: 12/05/16 Attending physician: Carrillo Ramirez Consults: Dr. Jamar Stewart for medical management [facility] Course: Patient is a 41-year-old white female, patient of Dr. Jamar Stewart in the outpatient setting, with medical history significant for Graves' disease and surgical history significant for tubal occasion, presenting to the emergency department with complaints of right lower quadrant abdominal pain onset approximately 3 days prior to admission. CT of the abdomen and pelvis with evidence of a 3 cm complex collection of air with surrounding inflammatory changes medial to the cecum appearing to be extraluminal air and related to an abscess with possible diagnosis of perforated diverticulum with abscess. Patient also has evidence of a hiatal hernia. Patient underwent diagnostic laparoscopy with laparoscopic right colectomy and partial omentectomy for findings of a transmural cecal abscess. Patient tolerated procedure well. Patient had an uneventful postoperative recovery and was felt stable for discharge to home with follow-up in the outpatient setting. Discharge diagnoses: 1. Transmural cecal abscess status post diagnostic laparoscopically; laparoscopic right colectomy with partial omentectomy on 12/02/2016. 2. Hiatal hernia. 3. Possible sepsis. 4. Nicotine dependence. 5. History of Graves' disease. 6. History of tubal ligation. The above impression and plan have been discussed and directed by Dr. Ramirez. [place] VENTURA acting as scribe for Dr. Ramirez. Pertinent Studies: KUB x-ray; abdomen/pelvis CT Procedures: Diagnostic laparoscopy; Laparoscopic right colectomy; Partial omentectomy Patient Condition at Discharge: Good Plan - Discharge Summary New Discharge Prescriptions: HYDROcodone/APAP 7.5-325MG [[place] 7.5-325] 1 tab PO Q6HR PRN #28 tab PRN Reason: Pain Discharge Medication List Levothyroxine Sodium [Synthroid] 150 mcg PO DAILY 12/01/16 [History] HYDROcodone/APAP 7.5-325MG [[place] 7.5-325] 1 tab PO Q6HR PRN #28 tab 12/05/16 [ Rx] Follow up Appointment(s)/Referral(s): Jamar Stewart MD [Primary Care Provider] - 1-2 days Carrillo Ramirez MD [STAFF PHYSICIAN] - 1 Week Patient Instructions/Handouts: Laparoscopic Bowel Resection (DC) Activity/Diet/Wound Care/Special Instructions: No heavy lifting, pushing, or pulling items greater than 10 pounds. Advance diet to soft foods diet as tolerated. Shower daily, no soaking in bath tubs, pools, or hot tubs. No driving while taking pain medication. Notify surgeon with any signs or symptoms of infection, increased pain, or not tolerating diet. Discharge Disposition: HOME SELF-CARE
[2016-12-05 13:52] VITALS: PULSE 86
[2016-12-06] MEDS ORDERED: PANTOPRAZOLE 40 MG TABLET PO SCH (07:30)
== END 2016-12-05 15:00 | disposition home or self-care (01) | DRG 853 ==
LOC: EC 14:09 → 3SUR 18:31
PROVIDERS: ADMIT Surgery; ATTEND Surgery
PROC: 0DBS4ZZ (ICD-10-PCS; 2016-12-02)
PROC: 0DTF4ZZ Resection of Right Large Intestine, Percutaneous Endoscopic Approach (ICD-10-PCS; principal; 2016-12-02 10:10)
DX: A41.9 Sepsis, unspecified organism (principal); K35.3 Acute appendicitis with localized peritonitis; E05.00 Thyrotoxicosis with diffuse goiter without thyrotoxic crisis or storm; E03.9 Hypothyroidism, unspecified; K44.9 Diaphragmatic hernia without obstruction or gangrene; F17.200 Nicotine dependence, unspecified, uncomplicated; Z98.51 Tubal ligation status; Z79.899 Other long term (current) drug therapy
CPT/HCPCS: 36415; 74000; 74177; 80048; 80053; 81001; 81025; 82150; 83605; 83690; 83735; 84100; 85025; 87040; 87086; 88305; 88307; 94640; 96361; 96365; 96375; 96376; 99285

== ENCOUNTER 2017-01-30 07:44 | Day surgery (SDC) | payer OTHER ==
[2017-01-28 10:04] VITALS: BMI 25.0
[~2017-01-30 07:44] MED LIST changes: +LACTATED RINGERS 1,000 ML IV SCH; +LIDOCAINE 1% 20 ML VIAL (10MG/ML) FOR IV START INTRADERMA PRN; -PIPERACILLIN-TAZOBACTAM 3.375 GM in DEXTROSE/WATER 1 50ML.BAG IVPB SCH
[2017-01-30 08:01] VITALS: RESP 16; TEMP 97.3
[2017-01-30] MEDS ORDERED: PROPOFOL 10 MG/ML 20 ML VIAL IV ONE (08:41)
[2017-01-30] MEDS ORDERED: LIDOCAINE 1% INJ 10MG/ML (20 ML MDV) ONE (08:41)
--- NOTE | 2017-01-30 08:55 | P.GSHP ---
History of Present Illness H&P Date: 01/30/17 Chief Complaint: Colitis 's of 41-year-old female who recently underwent right colectomy for colitis of right colon. Patient's found have enteral abscess of right colon. She presents today for colonoscopy. - Constitutional Constitutional: Reports as per HPI Past Medical History Additional Past Medical History / Comment(s): graves disease History of Any Multi-Drug Resistant Organisms: None Reported Past Surgical History: Appendectomy, Bowel Resection, Tubal Ligation Additional Past Surgical History / Comment(s): HAD ABSCESS ON COLON Past Anesthesia/Blood Transfusion Reactions: No Reported Reaction Past Psychological History: No Psychological Hx Reported Smoking Status: Current every day smoker Past Alcohol Use History: Occasional Additional Past Alcohol Use History / Comment(s): SMOKES 1 PPD SINCE AGE 11 Past Drug Use History: None Reported - Past Family History Father Family Medical History: Hypertension Mother Family Medical History: Thyroid Disorder Medications and Allergies Home Medications Medication Instructions Recorded Confirmed Type Levothyroxine Sodium [Synthroid] 150 mcg PO DAILY 12/01/16 01/30/17 History Allergies Allergy/AdvReac Type Severity Reaction Status Date / Time No Known Allergies Allergy Verified 01/28/17 09:57 Surgical - Exam Vital Signs Temp Pulse Resp BP Pulse Ox 97.3 F L 97 16 115/74 96 01/30/17 08:00 01/30/17 08:00 01/30/17 08:00 01/30/17 08:00 01/30/17 08:00 - General well developed, no distress - Eyes PERRL - ENT normal pinna - Neck no masses - Respiratory normal expansion - Cardiovascular Rhythm: regular - Abdomen Abdomen: soft, non tender Assessment and Plan Plan: History of colitis. We'll perform colonoscopy.
--- NOTE | 2017-01-30 09:12 | P.OP ---
Date of Procedure: 01/30/17 Preoperative Diagnosis: History of colitis Postoperative Diagnosis: Sigmoid colon polyp Procedure(s) Performed: Colonoscopy Implants: Anesthesia: MURTAZA DUMONT Surgeon: Carrillo Ramirez Pathology: other (Sigmoid colon Polyp) Condition: stable Disposition: PACU Indications for Procedure: Operative Findings: Description of Procedure: Patient's placed on the endoscopy table in the lateral position. She received IV sedation. Digital rectal exam was performed which revealed no abnormalities. The flexible colonoscope was then placed the patient's anus and passed throughout the entire colon. The patient had a previous ileocolonic anastomosis this was visualized. The scope was withdrawn. The transverse colon appeared normal. The descending colon appeared normal. In the sigmoid colon there was a peduncular polyp and this was removed with the snare. The scope was then brought back the rectum and this appeared normal. Scope was withdrawn for patient.
[2017-01-30 09:28] VITALS: BP 113/70; PULSE 79
== END 2017-01-30 09:47 | disposition home or self-care (01) ==
LOC: ORWHC2ENDO 07:44
PROVIDERS: ATTEND Surgery
DX: D12.5 Benign neoplasm of sigmoid colon (principal); Z90.49 Acquired absence of other specified parts of digestive tract; K52.9 Noninfective gastroenteritis and colitis, unspecified; E05.00 Thyrotoxicosis with diffuse goiter without thyrotoxic crisis or storm; Z79.899 Other long term (current) drug therapy; F17.200 Nicotine dependence, unspecified, uncomplicated
CPT/HCPCS: 81025; 88305; 45385; J2001; J2704

== ENCOUNTER 2017-09-17 14:19 | Day surgery (SDC) | payer OTHER ==
[2017-09-15 10:27] VITALS: BMI 26.6
[~2017-09-17 14:19] MED LIST changes: -LIDOCAINE 1% 20 ML VIAL (10MG/ML) FOR IV START INTRADERMA PRN
[2017-09-17 14:29] VITALS: TEMP 98
[2017-09-17] MEDS ORDERED: LACTATED RINGERS 1,000 ML IV ONE (14:29)
[2017-09-17] MEDS ORDERED: LIDOCAINE 1% 20 ML VIAL (10MG/ML) FOR IV START INTRADERMA ONE (14:30)
[2017-09-17] MEDS ORDERED: LIDOCAINE 1% INJ 10MG/ML (20 ML MDV) ONE (15:30)
[2017-09-17] MEDS ORDERED: PROPOFOL 10 MG/ML 20 ML VIAL IV ONE (15:30)
--- NOTE | 2017-09-17 15:42 | P.OP ---
Date of Procedure: 09/17/17 Preoperative Diagnosis: GERD Postoperative Diagnosis: Antral gastritis Large hiatal hernia Esophagitis Procedure(s) Performed: EGD Anesthesia: MAC Surgeon: Carrillo Ramirez Pathology: other (Antrum, esophagus) Condition: stable Disposition: PACU Description of Procedure: The patient's placed on the endoscopy table in the lateral position. She received IV sedation. The gastroscope was placed oropharynx passed in the esophagus and into the stomach. Scope was placed through the pylorus. The first and second portion of the duodenum appeared normal. Scope was then brought back and the antrum this is mildly inflamed. Biopsies scope was retroflexed and remainder stomach appeared normal. The patient had a large hiatal hernia. The GE junction was at 37 cm. The distal esophagus. Inflamed this was biopsied. The proximal esophagus appeared normal. Scope was withdrawn for patient.
[2017-09-17 15:57] VITALS: RESP 16
[2017-09-17 16:03] VITALS: BP 94/54; PULSE 71
--- NOTE | 2017-09-26 08:12 | P.GSHP ---
History of Present Illness H&P Date: 09/17/17 Chief Complaint: GERD 's is a 41-year-old female who's had long-standing problems reflux esophagitis. Patient presents today for EGD. Past Medical History Additional Past Medical History / Comment(s): graves disease History of Any Multi-Drug Resistant Organisms: None Reported Past Surgical History: Appendectomy, Bowel Resection, Tubal Ligation Additional Past Surgical History / Comment(s): HAD ABSCESS ON COLON, COLONOCOPY, Past Anesthesia/Blood Transfusion Reactions: No Reported Reaction Smoking Status: Current every day smoker - Past Family History Father Family Medical History: Hypertension Mother Family Medical History: Thyroid Disorder Medications and Allergies Home Medications Medication Instructions Recorded Confirmed Type Levothyroxine Sodium [Synthroid] 150 mcg PO DAILY 12/01/16 09/17/17 History Allergies Allergy/AdvReac Type Severity Reaction Status Date / Time No Known Allergies Allergy Verified 09/15/17 10:24 Surgical - Exam Vital Signs Temp Pulse Resp BP Pulse Ox 98.0 F 78 18 109/51 98 09/17/17 14:27 09/17/17 14:27 09/17/17 14:27 09/17/17 14:27 09/17/17 14:27 - General well developed, no distress - Eyes PERRL - ENT normal pinna - Neck no masses - Respiratory normal expansion - Cardiovascular Rhythm: regular - Abdomen Abdomen: soft, non tender Assessment and Plan Assessment: GERD. We'll perform EGD.
== END 2017-09-17 16:22 | disposition home or self-care (01) ==
LOC: ORWHC2ENDO 14:19
PROVIDERS: ATTEND Surgery
DX: K21.0 Gastro-esophageal reflux disease with esophagitis (principal); K29.50 Unspecified chronic gastritis without bleeding; K44.9 Diaphragmatic hernia without obstruction or gangrene; E07.9 Disorder of thyroid, unspecified; F17.200 Nicotine dependence, unspecified, uncomplicated; Z79.899 Other long term (current) drug therapy
CPT/HCPCS: 81025; 43239; J2001; J2704; 88305; 88342

== ENCOUNTER → 2017-10-02 | Outpatient (CLI) | payer OTHER ==
[2017-10-02 11:42] LABS: HCT 39.6 % (34.0-46.0); HGB 13.6 gm/dL (11.4-16.0); MCH 31.2 pg (25.0-35.0); MCHC 34.3 g/dL (31.0-37.0); Mean Platelet Volume 7.3; Platelet Count 360 k/uL (150-450); RBC 4.35 m/uL (3.80-5.40); RDW 13.7 % (11.5-15.5); WBC 10.8 k/uL (3.8-10.6)
== END | disposition home or self-care (01) ==
LOC: LABPAT 11:08
PROVIDERS: ATTEND Surgery
DX: Z01.812 Encounter for preprocedural laboratory examination (principal); K21.0 Gastro-esophageal reflux disease with esophagitis
CPT/HCPCS: 36415; 85027

== ENCOUNTER 2017-10-03 09:04 | Observation (INO) | payer OTHER ==
[2017-10-02 08:31] VITALS: BMI 26.6
[~2017-10-03 09:04] MED LIST changes: +DEXAMETHASONE SOD PHOSPHATE 10 MG/ML 1 ML VIAL IV ONE; +HEPARIN SODIUM,PORCINE 5,000 UNIT/ML 1 ML VIAL SQ ONE; -LACTATED RINGERS 1,000 ML IV SCH; +MIDAZOLAM 2 MG/2 ML VIAL IV PRN; +MORPHINE SULFATE 4 MG/ML SYRINGE IV PRN; +ONDANSETRON 4 MG/2 ML VIAL IVP ONE; +SCOPOLAMINE 1.5MG/72HR PATCH TRANSDERM ONE; +ceFAZolin IN SWFI 2 GM/20 ML SYRINGE IVP ONE
[2017-10-03] MEDS: LACTATED RINGERS 1,000 ML IV SCH (09:51)
--- NOTE | 2017-10-03 10:06 | P.GSHP ---
History of Present Illness H&P Date: 10/03/17 Chief Complaint: GERD This is a 41-year-old female referred from Dr. Jamar Mclaughlin. MThe patient has had long-standing problems with reflux esophagitis. The patient underwent recent EGD is found have evidence of esophagitis. Patient has been well informed on the procedure of laparoscopic Maciej fundoplication. The patient is aware the risk of the conversion to the open procedure, risk of injury to the stomach, liver and spleen. The patient is also a risk of recurrent GERD and dysphagia symptoms. The patient understands there is a postoperative diet of full liquids for 2 weeks after surgery. Past Medical History Past Medical History: Thyroid Disorder Additional Past Medical History / Comment(s): Graves disease. HIATAL HERNIA History of Any Multi-Drug Resistant Organisms: None Reported Past Surgical History: Appendectomy, Bowel Resection, Tubal Ligation Additional Past Surgical History / Comment(s): HAD ABSCESS ON COLON, COLONOCOPY , EGD-09/17/17 Past Anesthesia/Blood Transfusion Reactions: No Reported Reaction Smoking Status: Current every day smoker - Past Family History Father Family Medical History: Hypertension Mother Family Medical History: Thyroid Disorder Medications and Allergies Home Medications Medication Instructions Recorded Confirmed Type Levothyroxine Sodium [Synthroid] 150 mcg PO DAILY 12/01/16 10/03/17 History Allergies Allergy/AdvReac Type Severity Reaction Status Date / Time No Known Allergies Allergy Verified 10/03/17 09:42 Surgical - Exam Vital Signs Temp Pulse Resp BP Pulse Ox 97.7 F 72 16 132/89 98 10/03/17 09:52 10/03/17 09:52 10/03/17 09:52 10/03/17 09:52 10/03/17 09:52 - General well developed, no distress - Eyes PERRL - ENT normal pinna - Neck no masses - Respiratory normal expansion - Cardiovascular Rhythm: regular - Abdomen Abdomen: soft, non tender Assessment and Plan Assessment: GERD. We'll perform Maciej fundal plication.
[2017-10-03] MEDS ORDERED: LIDOCAINE 1% INJ 10MG/ML (20 ML MDV) ONE (10:36)
[2017-10-03] MEDS ORDERED: NEOSTIGMINE 1 MG/ML 10 ML VIAL ONE (10:36)
[2017-10-03] MEDS ORDERED: PROPOFOL 10 MG/ML 20 ML VIAL IV ONE (10:36)
[2017-10-03] MEDS ORDERED: HYDROmorphone (PF) 1 MG/ML ONE (10:36)
[2017-10-03] MEDS ORDERED: ROCURONIUM BROMIDE 10 MG/ML 10 ML VIAL IV ONE (10:36)
[2017-10-03] MEDS ORDERED: fentaNYL (PF) 50 MCG/ML 2 ML AMP ONE (10:36)
[2017-10-03] MEDS ORDERED: SUCCINYLCHOLINE CHLORIDE 100 MG/5 ML SYR IV ONE (10:36)
[2017-10-03] MEDS ORDERED: GLYCOPYRROLATE 0.2 MG/ML 2 ML VIAL ONE (10:36)
[2017-10-03] MEDS ORDERED: MIDAZOLAM 2 MG/2 ML VIAL ONE (10:36)
[2017-10-03] MEDS ORDERED: BUPIVACAINE (PF) 0.25% 30 ML VIAL SQ ONE (10:58)
[2017-10-03] MEDS ORDERED: LACTATED RINGERS 1,000 ML IV ONE (11:26)
[2017-10-03] MEDS ORDERED: ONDANSETRON 4 MG/2 ML VIAL IVP PRN (11:53)
[2017-10-03] MEDS ORDERED: HYDROmorphone 0.5 MG/0.5 ML SYRINGE IVP ONE ×2 (12:06→12:13)
--- NOTE | 2017-10-03 12:21 | P.OP ---
Date of Procedure: 10/03/17 Preoperative Diagnosis: GERD Postoperative Diagnosis: GERD Procedure(s) Performed: Laparoscopic Maciej fundoplication Anesthesia: TIM Surgeon: Carrillo Ramirez Estimated Blood Loss (ml): 5 Pathology: none sent Condition: stable Disposition: PACU Description of Procedure: The patient was placed on the operating table in the supine position. The patient received general anesthesia. And was placed in dorsal lithotomy position. The patient was prepped and draped in the usual sterile fashion. The skin incision sites were anesthetized with 1% local Xylocaine. The skin was incised in the left periumbilical area and then using a blade less 5 mm trocar under direct visualization panel cavity was entered. After adequate insufflation the laparoscope was then placed into the peritoneal cavity. Next a 5 mm trochars placed in the right epigastric position. Another 5 millimeter trocar the right lateral position. Another 5 millimeter trocar in the left lateral position a 5 mm trocar is placed in the left epigastric position. And then the initial 5 mm trocar was exchanged for a 10 mm trocar. The left lateral lobe liver was retracted. The hernia was seen. The crural defect was then dissected using the Harmonic scissors device. A 360 crural dissection was performed the esophagus stomach was reduced back into the peritoneal Cavity. The crural defect was then closed using 2-0 Ethibond suture. Next the fundus of the stomach was mobilized using the [place] scissors device. and then a 58-Lithuanian bougie dilator was placed oropharynx passed into the esophagus and stomach the fundal plication wrap was then performed by grasping the fundus posteriorly and bringing it around the esophagus and stomach fundoplication was then performed using 2-0 Ethibond suture. Care was taken that the fundal location rested over top of the intra-abdominal esophagus. There was no injury seen to the stomach or esophagus. The dilator was then withdrawn. The abdomen was irrigated there is no bleeding seen. The trochars were then withdrawn and then skin incision sites were closed using 3-0 Monocryl suture Steri-Strips are applied. Patient thought procedure well and sent to recovery room in stable condition.
[2017-10-03] MEDS: HYDROmorphone 2 MG/ML 1 ML SYRINGE IVP PRN ×3 (13:35→21:19)
[2017-10-03] MEDS: D5-0.45% NACL WITH KCL 20MEQ/L 1,000 ML IV SCH ×2 (13:39→22:33)
--- NOTE | 2017-10-03 14:22 | FL ---
EXAMINATION TYPE: FL esophagus cervic/pharynx DATE OF EXAM: 10/03/2017 HISTORY: Post Maciej fundoplasty. COMPARISON: NONE TECHNIQUE: A single contrast esophagram is performed utilizing 40 cc of Omnipaque 350. 54 seconds o f fluoroscopy time was utilized with 60 images saved. FINDINGS: The esophagus shows normal motility and emptying into the stomach. No evidence of hiatal hernia or s tricture noted. Mild delay at the gastroesophageal junction likely relates to postoperative edema. No significant gastroesophageal reflux was seen during real time performance of this study. No extravas ation of contrast is seen throughout the examination. IMPRESSION: Mild delay at the gastroesophageal junction likely relates to postoperative edema. No st ricture or evidence of leak.
[2017-10-03] MEDS: NICOTINE 14MG/24HR PATCH TRANSDERM SCH (18:20)
[2017-10-03] MEDS: LEVOTHYROXINE SODIUM 150 MCG PO SCH (20:04)
[2017-10-03] MEDS: FAMOTIDINE 20 MG/2 ML VIAL IV SCH (22:04)
[2017-10-04] MEDS: HYDROmorphone 2 MG/ML 1 ML SYRINGE IVP PRN ×5 (01:30→17:56)
[2017-10-04] MEDS: LACTATED RINGERS 1,000 ML IV SCH (06:40)
[2017-10-04] MEDS: D5-0.45% NACL WITH KCL 20MEQ/L 1,000 ML IV SCH ×4 (08:32→21:39)
[2017-10-04] MEDS: LEVOTHYROXINE SODIUM PO SCH (08:32)
[2017-10-04] MEDS: ENOXAPARIN 40 MG/0.4 ML SYRINGE SQ SCH (08:37)
[2017-10-04] MEDS: NICOTINE 14MG/24HR PATCH TRANSDERM SCH (08:37)
[2017-10-04] MEDS: FAMOTIDINE 20 MG/2 ML VIAL IV SCH ×2 (08:38→21:41)
[2017-10-04] MEDS: LEVOTHYROXINE SODIUM 150 MCG PO SCH (09:09)
[2017-10-04] MEDS ORDERED: HYDROcodone/APAP 15 ML SOLUTION PO PRN (17:58)
[2017-10-04] MEDS ORDERED: SIMETHICONE 40 MG/0.6 ML DROPS 2,000 MG/30 ML BOTTLE PO SCH (18:00)
--- NOTE | 2017-10-04 18:32 | P.PN ---
Subjective Progress Note Date: 10/04/17 Principal diagnosis: Postop day #1 status post lap scopic Maciej fundoplication 41 years old female status post lap Maciej. Patient is tolerating clear liquids. However pain is poorly controlled. She is tearful and crying. She is anxious about pain control at home Objective - Vital Signs Vital signs: Vital Signs Temp 98 F 10/04/17 15:00 Pulse 104 H 10/04/17 15:00 Resp 18 10/04/17 15:00 BP 111/55 10/04/17 15:00 Pulse Ox 95 10/04/17 15:00 Intake & Output 10/03/17 10/04/17 10/04/17 18:59 06:59 18:59 Intake Total 0618 450 2718 Output Total 10 Balance 6216 671 8466 Weight 72.575 kg Intake: IV 1700 Intake, IV Titration 1000 Amount D5-0.45% NaCl with KCl 1000 20Meq/l 1,000 ml @ 125 mls/hr IV .Q8H NYDIA Rx#: [id number] Oral 540 300 Output: Estimated Blood Loss 10 Other: Voiding Method Toilet Toilet Toilet # Voids 2 - Exam Patient is alert and oriented to time place and person and cooperative with exam. Bilateral equal air entry and chest No tachycardia Abdomen is soft and nondistended Incisions are clean dry and intact Assessment and Plan (1) GERD (gastroesophageal reflux disease) Current Visit: Yes Status: Acute Code(s): K21.9 - GASTRO-ESOPHAGEAL REFLUX DISEASE WITHOUT ESOPHAGITIS SNOMED Code(s): 686616662 Plan: Continue with clear liquid diet. Advance diet as per protocol Start high set for oral pain medication Simethicone for gas pain relief Discharge planning and next 24 hours
[2017-10-04] MEDS: KETOROLAC 30 MG/ML 1 ML VIAL IVP SCH (18:48)
[2017-10-04] MEDS: SIMETHICONE 80 MG CHEWABLE PO SCH (21:41)
[2017-10-05] MEDS: KETOROLAC 30 MG/ML 1 ML VIAL IVP SCH ×3 (00:13→12:31)
[2017-10-05] MEDS: D5-0.45% NACL WITH KCL 20MEQ/L 1,000 ML IV SCH ×2 (03:54→13:14)
[2017-10-05] MEDS: LACTATED RINGERS 1,000 ML IV SCH (05:47)
[2017-10-05] MEDS: LEVOTHYROXINE SODIUM PO SCH (05:48)
[2017-10-05] MEDS: ENOXAPARIN 40 MG/0.4 ML SYRINGE SQ SCH (08:06)
[2017-10-05] MEDS: NICOTINE 14MG/24HR PATCH TRANSDERM SCH (08:06)
[2017-10-05] MEDS: SIMETHICONE 80 MG CHEWABLE PO SCH (08:06)
[2017-10-05] MEDS: FAMOTIDINE 20 MG/2 ML VIAL IV SCH (08:07)
[2017-10-05 09:47] VITALS: BP 118/54; PULSE 80; RESP 18; TEMP 97.4
--- NOTE | 2017-10-05 13:09 | P.DS ---
Providers Date of admission: 10/03/17 21:29 Expected date of discharge: 10/05/17 Attending physician: Carrillo Ramirez Consults: 10/03/17 11:53 Consult Physician Routine Consulting Provider: Jamar Stewart Reason/Comments: Medical management Do you want consulting provider notified?: Yes Primary care physician: Jamar Stewart - Discharge Diagnosis(es) (1) GERD (gastroesophageal reflux disease) Current Visit: Yes Status: Acute Hospital Course: 41 years old female status post laparoscopic Maciej fundoplication. Patient had pain and bloating on postop day #1 which is completely resolved. She is comfortable and tolerating liquid diet. No perioperative complications. Patient was discharged home on full liquid diet. Patient Condition at Discharge: Good Plan - Discharge Summary Discharge Rx Participant: Yes New Discharge Prescriptions: No Action Levothyroxine Sodium [Synthroid] 150 mcg PO DAILY Discharge Medication List Levothyroxine Sodium [Synthroid] 150 mcg PO DAILY 12/01/16 [History] Follow up Appointment(s)/Referral(s): Carrillo Ramirez MD [STAFF PHYSICIAN] - 1 Week (Patient to make own follow-up appt. Office closed at thime of discharge. ) Patient Instructions/Handouts: *Surgery [facility] - ([facility]) Lap Maciej Fundiplication Post-Op Instructions, Nicotine (Absorbed through the skin), Ketorolac (By mouth), Clear Liquid Diet (DC), Adult Laparoscopic Maciej Fundoplication (DC) Activity/Diet/Wound Care/Special Instructions: OK to shower. No soaking bath. No heavy lifting more than 10 lbs for 6 weeks post surgery. No driving while taking narcotics for pain. May use ice packs for local pain relief Use incentive spireometry 10 times an hour while awake Liquid diet only until seen by Dr. Ramirez in office Per Dr. Stewart- call his office tomorrow a.m. for prescription for Nicotine patch. Discharge Disposition: HOME SELF-CARE
== END 2017-10-05 14:05 | disposition home or self-care (01) ==
LOC: OR 09:04 → 5MS5E 11:43 → OR 21:29
PROVIDERS: ADMIT Surgery; ATTEND Surgery
DX: K21.0 Gastro-esophageal reflux disease with esophagitis (principal); K44.9 Diaphragmatic hernia without obstruction or gangrene; F17.210 Nicotine dependence, cigarettes, uncomplicated; E05.00 Thyrotoxicosis with diffuse goiter without thyrotoxic crisis or storm; Z79.899 Other long term (current) drug therapy; Z82.49 Family history of ischemic heart disease and other diseases of the circulatory system
CPT/HCPCS: 43280; 81025; 74210; G0378 ×3; S4990 ×3; J2250; J1170 ×4; J1644; J1100; J2710; Q9967; J2405; J2001; J1650 ×2; J3010; J1885 ×2; J0330; J2704; J0690

== ENCOUNTER → 2017-10-27 | Outpatient (CLI) | payer OTHER ==
[2017-10-27 13:36] LABS: HCT 38.3 % (34.0-46.0); HGB 12.8 gm/dL (11.4-16.0); MCH 30.1 pg (25.0-35.0); MCHC 33.4 g/dL (31.0-37.0); MCV 90.1 fL (80.0-100.0); Mean Platelet Volume 7.5; Platelet Count 331 k/uL (150-450); RBC 4.25 m/uL (3.80-5.40); RDW 13.2 % (11.5-15.5); WBC 10.4 k/uL (3.8-10.6)
== END | disposition home or self-care (01) ==
LOC: LABPAT 13:06
PROVIDERS: ATTEND Surgery
DX: Z01.812 Encounter for preprocedural laboratory examination (principal); K43.2 Incisional hernia without obstruction or gangrene
CPT/HCPCS: 36415; 85027; 86850; 86900; 86901

== ENCOUNTER → 2017-10-29 | Day surgery (SDC) | payer OTHER ==
[2017-10-24 13:26] VITALS: BMI 25.0
[~2017-10-29] MED LIST changes: +BUPIVACAINE (PF) 0.25% 30 ML VIAL SQ ONE; +GLYCOPYRROLATE 0.2 MG/ML 2 ML VIAL ONE; +HYDROcodone/APAP 7.5-325MG 1 EACH TAB PO ONE; +HYDROmorphone (PF) 1 MG/ML ONE; +HYDROmorphone 0.5 MG/0.5 ML SYRINGE IVP PRN; +HYDROmorphone 1 MG/ML 1 ML SYRINGE IVP ONE; +KETOROLAC 30 MG/ML 1 ML VIAL ONE; +LABETALOL 5 MG/ML VIAL MDV ONE; +LACTATED RINGERS 1,000 ML IV ONE; +LACTATED RINGERS 1,000 ML IV SCH; +LIDOCAINE 1% 20 ML VIAL (10MG/ML) FOR IV START INTRADERMA PRN; +LIDOCAINE 1% INJ 10MG/ML (20 ML MDV) ONE; -MIDAZOLAM 2 MG/2 ML VIAL IV PRN; +MIDAZOLAM 2 MG/2 ML VIAL ONE; -MORPHINE SULFATE 4 MG/ML SYRINGE IV PRN; +NEOSTIGMINE 1 MG/ML 10 ML VIAL ONE; +PROPOFOL 10 MG/ML 20 ML VIAL IV ONE; +ROCURONIUM BROMIDE 10 MG/ML 10 ML VIAL IV ONE; +SUCCINYLCHOLINE CHLORIDE 100 MG/5 ML SYR IV ONE; +fentaNYL (PF) 50 MCG/ML 2 ML AMP ONE
[2017-10-29 08:47] VITALS: TEMP 97.6
--- NOTE | 2017-10-29 10:05 | P.GSHP ---
History of Present Illness H&P Date: 10/29/17 Chief Complaint: Incisional hernia This is a 41-year-old female referred from Dr. Jamar Mclaughlin. Patient presents today for laparoscopic robot-assisted repair of incisional hernia. Past Medical History Past Medical History: Thyroid Disorder Additional Past Medical History / Comment(s): Graves disease. HIATAL HERNIA REPAIRED 10/03/17. HAS INCISIONAL HERNIA LOWER ABD. History of Any Multi-Drug Resistant Organisms: None Reported Past Surgical History: Appendectomy, Bowel Resection, Tubal Ligation Additional Past Surgical History / Comment(s): HX ABSCESS ON COLON 2017. COLONOCOPY. EGD-09/17/17. LAP LILLY FUNDOPLICATION 10/03/17. Past Anesthesia/Blood Transfusion Reactions: No Reported Reaction Smoking Status: Current every day smoker - Past Family History Father Family Medical History: Hypertension Mother Family Medical History: Thyroid Disorder Medications and Allergies Home Medications Medication Instructions Recorded Confirmed Type Levothyroxine Sodium [Synthroid] 150 mcg PO DAILY 12/01/16 10/29/17 History Acetaminophen Tab [Tylenol Tab] 650 mg PO Q4H PRN 10/24/17 10/29/17 History Allergies Allergy/AdvReac Type Severity Reaction Status Date / Time No Known Allergies Allergy Verified 10/24/17 13:00 Surgical - Exam Vital Signs Temp Pulse Resp BP Pulse Ox 97.6 F 77 16 110/68 97 10/29/17 08:46 10/29/17 08:46 10/29/17 08:46 10/29/17 08:46 10/29/17 08:46 - General well developed, no distress - Eyes PERRL - ENT normal pinna - Neck no masses - Respiratory normal expansion - Cardiovascular Rhythm: regular - Abdomen Abdomen: soft, non tender Hernia: incisional (5 cm incisional hernia located near her umbilicus) Assessment and Plan Assessment: Incisional hernia. We'll perform laparoscopic robotic-assisted repair.
[2017-10-29 14:21] VITALS: RESP 16
[2017-10-29 15:37] VITALS: BP 135/62; PULSE 88
--- NOTE | 2017-10-31 14:41 | P.OP ---
Date of Procedure: 10/29/17 Preoperative Diagnosis: Incisional hernia Postoperative Diagnosis: Incisional hernia Adhesions Procedure(s) Performed: Laparoscopic robotic-assisted repair of incisional hernia Lap scopic lysis of adhesions Anesthesia: TIM Surgeon: Carrillo Ramirez Estimated Blood Loss (ml): 5 Pathology: none sent Condition: stable Disposition: PACU Description of Procedure: The patient was placed on the operating table in the supine position. He received general anesthesia. His abdomen was prepped and draped usual fashion. Using a 5 mm optical trocar under direct visualization the peritoneal cavity was entered in the left upper quadrant. The abdomen was then insufflated. The laparoscope was placed back into the perineal cavity. Next a 8 mm robotic trocar was placed in the left lower quadrant and a 12 mm robotic trocar was placed in the left lateral position. The original 5 mm trocar was exchanged for a 8 mm robotic trocar. The patient's placed in the left side up position. And the patient was docked to the robot. The incisional hernia was visualized. There were adhesions located at the incisional hernia. These were lysed using sharp dissection. Using hook cautery the peritoneum over the incisional hernia was excised. The fascial opening was repaired using 0V LOC suture. Next a piece of 11 cm round ventral light ST mesh was placed into the. Cavity and secured with 2 OV lock suture. The patient was undocked the robot. The needles were retrieved. The fascia of the 12 mm trocar site was closed with 0 Ethibond suture. Skin was closed interrupted 3-0 Monocryl suture. Dermabond dressings was applied. Patient tolerated procedure well and was sent to recovery room stable condition.
== END ==
LOC: OR 08:35
PROVIDERS: ATTEND Surgery
DX: K43.2 Incisional hernia without obstruction or gangrene (principal); K66.0 Peritoneal adhesions (postprocedural) (postinfection); E07.9 Disorder of thyroid, unspecified; E05.00 Thyrotoxicosis with diffuse goiter without thyrotoxic crisis or storm; F17.200 Nicotine dependence, unspecified, uncomplicated; Z79.899 Other long term (current) drug therapy
CPT/HCPCS: 49654; S2900; 36415; 81025; 85027; 86850; 86900; 86901

== ENCOUNTER → 2018-01-12 | Outpatient (CLI) | payer OTHER ==
--- NOTE | 2018-01-12 09:08 | MM ---
Reason for exam: screening (asymptomatic). Baseline mammogram. Physical Findings: A clinical breast exam by your physician is recommended on an annual basis and results should be correlated with mammographic findings. MG 3D Screening Mammo W/Cad Bilateral CC and MLO view(s) were taken. The breast tissue is heterogeneously dense. This may lower the sensitivity of mammography. There is no discrete abnormality. These results were verbally communicated with the patient and result sheet given to the patient on 01/12/18. ASSESSMENT: Negative, BI-RAD 1 RECOMMENDATION: Routine screening mammogram of both breasts in 1 year.
== END | disposition home or self-care (01) ==
LOC: RADMAMWWP 06:58
PROVIDERS: ATTEND Family Medicine
DX: Z12.31 Encounter for screening mammogram for malignant neoplasm of breast (principal)
CPT/HCPCS: 77063; 77067

== ENCOUNTER 2018-02-04 11:46 | Emergency (ER) | payer OTHER ==
[2018-02-04 12:51] VITALS: RESP 18; TEMP 97.5
[2018-02-04 13:14] LABS: Appearance,Urine Clear (Clear); Bilirubin,Urine Negative (Negative); Blood,Urine Trace (Negative); Color,Urine Light Yellow; Glucose,Urine (UA) Negative (Negative); Ketones,Urine Negative (Negative); Leukocyte Esterase,Urine Negative (Negative); Mucus,Urine Rare /hpf; Nitrite,Urine Negative (Negative); Protein,Urine Negative (Negative); RBC,Urine <1 /hpf (0-5); Specific Gravity,Urine 1.004 (1.001-1.035); Squamous Epithelial Cell,Urine 1 /hpf (0-4); Urobilinogen,Urine <2.0 mg/dL (<2.0)
[2018-02-04] MEDS ORDERED: RX INFO: IV CONTRAST WAS GIVEN 1 EACH MISC MISCELLANE PRN (14:58)
--- NOTE | 2018-02-04 15:00 | ED ---
Abdominal Pain HPI - General Chief Complaint: Abdominal Pain Stated Complaint: PAIN, BURNING DOWN R LEG AND L SIDE Time Seen by Provider: 02/04/18 14:45 Source: patient, RN notes reviewed Mode of arrival: ambulatory Limitations: no limitations - History of Present Illness Initial Comments: This a 42-year-old female presents emergency Department chief complaint of abdominal pain. She's been having worsening abdominal pain last few weeks. Patient states that she had a hiatal hernia repair and ventral hernia repair with mesh by Dr. Ramirez. Patient states that when she followed up last month he told her that she was just feeling ill get better. She states the pain is getting worse and not improving. She is concerned she has a burning sensation that radiates down. Patient denies any diarrhea, constipation, dysuria or hematuria. Patient states she just does not feel well. Denies any chest or shortness breath. - Related Data Home Medications Medication Instructions Recorded Confirmed Levothyroxine Sodium [Synthroid] 150 mcg PO DAILY 12/01/16 02/04/18 Allergies Allergy/AdvReac Type Severity Reaction Status Date / Time No Known Allergies Allergy Verified 02/04/18 14:49 Review of Systems ROS Statement: Those systems with pertinent positive or pertinent negative responses have been documented in the HPI. ROS Other: All systems not noted in ROS Statement are negative. Past Medical History Past Medical History: Thyroid Disorder Additional Past Medical History / Comment(s): Graves disease. HIATAL HERNIA REPAIRED 10/03/17. HAS INCISIONAL HERNIA LOWER ABD. History of Any Multi-Drug Resistant Organisms: None Reported Past Surgical History: Appendectomy, Bowel Resection, Tubal Ligation Additional Past Surgical History / Comment(s): HX ABSCESS ON COLON 2017. COLONOCOPY. EGD-09/17/17. LAP LILLY FUNDOPLICATION 10/03/17. Past Anesthesia/Blood Transfusion Reactions: No Reported Reaction Past Psychological History: No Psychological Hx Reported Smoking Status: Current every day smoker Past Alcohol Use History: None Reported Past Drug Use History: None Reported - Past Family History Father Family Medical History: Hypertension Mother Family Medical History: Thyroid Disorder General Exam General appearance: alert, in no apparent distress Head exam: Present: atraumatic, normocephalic, normal inspection Neck exam: Present: normal inspection. Absent: tenderness, meningismus, lymphadenopathy Respiratory exam: Present: normal lung sounds bilaterally. Absent: respiratory distress, wheezes, rales, rhonchi, stridor Cardiovascular Exam: Present: regular rate, normal rhythm, normal heart sounds. Absent: systolic murmur, diastolic murmur, rubs, gallop, clicks GI/Abdominal exam: Present: soft, tenderness (Mild left-sided abdominal tenderness), normal bowel sounds. Absent: distended, guarding, rebound, rigid Back exam: Absent: CVA tenderness (R), CVA tenderness (L) Skin exam: Present: warm, dry, intact, normal color. Absent: rash Course Vital Signs 02/04/18 12:48 Temperature 97.5 F L Pulse Rate 100 Respiratory 18 Rate Blood Pressure 109/68 O2 Sat by Pulse 97 Oximetry Medical Decision Making - Medical Decision Making 42-year-old female presents department for abdominal pain. Patient had surgery in October for hernia. Patient had CT which shows 4.3 cm left ovarian mass. Patient will follow-up with on-call [employer] Dr. Calle. Return parameters were discussed. - Lab Data Result diagrams: 02/04/18 15:14 02/04/18 15:14 Lab Results 02/04/18 02/04/18 02/04/18 Range/Units 12:40 15:14 15:14 WBC 8.9 (3.8-10.6) k/uL RBC 4.41 (3.80-5.40) m/uL Hgb 13.8 (11.4-16.0) gm/dL Hct 40.2 (34.0-46.0) % MCV 91.2 (80.0-100.0) fL MCH 31.3 (25.0-35.0) pg MCHC 34.3 (31.0-37.0) g/dL RDW 14.4 (11.5-15.5) % Plt Count 339 (150-450) k/uL Neutrophils % 65 % Lymphocytes % 26 % Monocytes % 4 % Eosinophils % 3 % Basophils % 1 % Neutrophils # 5.8 (1.3-7.7) k/uL Lymphocytes # 2.4 (1.0-4.8) k/uL Monocytes # 0.3 (0-1.0) k/uL Eosinophils # 0.3 (0-0.7) k/uL Basophils # 0.1 (0-0.2) k/uL Sodium 140 (137-145) mmol/L Potassium 4.1 (3.5-5.1) mmol/L Chloride 106 (98-107) mmol/L Carbon Dioxide 23 (22-30) mmol/L Anion Gap 11 mmol/L BUN 7 (7-17) mg/dL Creatinine 0.52 (0.52-1.04) mg/dL Est GFR (CKD-EPI)AfAm >90 (>60 ml/min/1.73 sqM) Est GFR (CKD-EPI)NonAf >90 (>60 ml/min/1.73 sqM) Glucose 93 (74-99) mg/dL Calcium 9.6 (8.4-10.2) mg/dL Total Bilirubin 0.3 (0.2-1.3) mg/dL AST 17 (14-36) U/L ALT 28 (9-52) U/L Alkaline Phosphatase 70 (38-126) U/L Total Protein 6.5 (6.3-8.2) g/dL Albumin 3.9 (3.5-5.0) g/dL Amylase 85 (30-110) U/L Lipase 326 H (23-300) U/L Urine Color Light Yellow Urine Appearance Clear (Clear) Urine pH 6.0 (5.0-8.0) Ur Specific Bowie 1.004 (1.001-1.035) Urine Protein Negative (Negative) Urine Glucose (UA) Negative (Negative) Urine Ketones Negative (Negative) Urine Blood Trace H (Negative) Urine Nitrite Negative (Negative) Urine Bilirubin Negative (Negative) Urine Urobilinogen <2.0 (<2.0) mg/dL Ur Leukocyte Esterase Negative (Negative) Urine RBC <1 (0-5) /hpf Ur Squamous Epith Cells 1 (0-4) /hpf Urine Mucus Rare H (None) /hpf Disposition Clinical Impression: Abdominal pain, Ovarian mass, left Disposition: HOME SELF-CARE Condition: Stable Instructions: Ovarian Cyst (ED) Additional Instructions: Please return to the Emergency Department if symptoms worsen or any other concerns. Is patient prescribed a controlled substance at d/c from ED?: No Referrals: Jamar Stewart MD [Primary Care Provider] - 1-2 days Maddie Calle MD [STAFF PHYSICIAN] - 1-2 days Time of Disposition: 16:18
[2018-02-04 15:32] LABS: Basophils # (A) 0.1 k/uL (0-0.2); Basophils % (A) 1 %; Eosinophils # (A) 0.3 k/uL (0-0.7); Eosinophils % (A) 3 %; HCT 40.2 % (34.0-46.0); HGB 13.8 gm/dL (11.4-16.0); Lymphocytes # (A) 2.4 k/uL (1.0-4.8); Lymphocytes % (A) 26 %; MCH 31.3 pg (25.0-35.0); MCHC 34.3 g/dL (31.0-37.0); MCV 91.2 fL (80.0-100.0); Mean Platelet Volume 7.2; Monocytes # (A) 0.3 k/uL (0-1.0); Monocytes % (A) 4 %; Neutrophils # (A) 5.8 k/uL (1.3-7.7); Neutrophils % (A) 65 %; Platelet Count 339 k/uL (150-450); RBC 4.41 m/uL (3.80-5.40); RDW 14.4 % (11.5-15.5); WBC 8.9 k/uL (3.8-10.6)
[2018-02-04 15:45] LABS: ALT 28 U/L (9-52); AST 17 U/L (14-36); Albumin 3.9 g/dL (3.5-5.0); Alkaline Phosphatase 70 U/L (38-126); Amylase 85 U/L (30-110); Anion Gap 11 mmol/L; Blood Urea Nitrogen 7 mg/dL (7-17); Calcium 9.6 mg/dL (8.4-10.2); Carbon Dioxide 23 mmol/L (22-30); Chloride 106 mmol/L (98-107); Glucose 93 mg/dL (74-99); Lipase 326 U/L (23-300); Potassium 4.1 mmol/L (3.5-5.1); Sodium 140 mmol/L (137-145); Total Bilirubin 0.3 mg/dL (0.2-1.3); Total Protein 6.5 g/dL (6.3-8.2)
--- NOTE | 2018-02-04 16:09 | CT ---
EXAMINATION TYPE: CT abdomen pelvis w con DATE OF EXAM: 02/04/2018 COMPARISON: Prior dated 08/29/2017 HISTORY: LLQ abd pain and nausea today. CT DLP: 1308 mGycm Automated exposure control for dose reduction was used. TECHNIQUE: Helical acquisition of images from the lung bases through the pelvis have been completed. CONTRAST: Performed without Oral Contrast and with IV Contrast, patient injected with 100ml mL of Isovue M300. FINDINGS: Hiatal hernia has been repaired in the interval. LUNG BASES: Stable appearance, large cystic lucencies independent atelectasis are again noted AORTA: No significant abnormality is appreciated. LIVER/GB: No significant abnormality is appreciated. PANCREAS: No significant abnormality is seen. SPLEEN: No significant abnormality is seen. ADRENALS: Left adrenal nodular density is again seen and is stable KIDNEYS: Retroaortic left renal vein is again noted. Calyceal diverticulum with associated calcificat ion again noted within the right kidney REPRODUCTIVE ORGANS: Large cystic left ovarian mass with septation is present and has increased in si ze measuring 4.3 cm. Pleural-based tubal ligation clips are present. Uterus and right ovary are tessie l. BOWEL: Postop changes are noted in the cecum, the appendix is not seen FREE AIR: No Free Air visible. ASCITES: None visible. PELVIC ADENOPATHY: None visualized. RETROPERITONEAL ADENOPATHY: No Retroperitoneal Adenopathy visible. URINARY BLADDER: No significant abnormality is seen. OSSEOUS STRUCTURES: Degenerative disc changes are greatest at L5-S1 loss of disc height, posterior e xtension of endplate disc complex possibly contacting proximal S1 nerve roots. IMPRESSION: INTERVAL GROWTH OF LEFT OVARIAN MASS, CONSIDER JUICE BAR TEAM MEMBER CONSULT, FOLLOW-UP IS RECOMMENDED. POSTOP CHANGES AND ADDITIONAL FINDINGS ABOVE.
[2018-02-04 16:55] VITALS: BP 120/59; PULSE 64
== END 2018-02-04 17:02 | disposition home or self-care (01) ==
LOC: EC 11:46
DX: N83.8 Other noninflammatory disorders of ovary, fallopian tube and broad ligament (principal); R10.9 Unspecified abdominal pain; R20.8 Other disturbances of skin sensation; E05.00 Thyrotoxicosis with diffuse goiter without thyrotoxic crisis or storm; F17.200 Nicotine dependence, unspecified, uncomplicated; Z79.899 Other long term (current) drug therapy; Z90.49 Acquired absence of other specified parts of digestive tract; Z98.51 Tubal ligation status; Z98.890 Other specified postprocedural states
CPT/HCPCS: 36415; 80053; 82150; 83690; 85025; 81001; 74177; 99284; Q9967

== ENCOUNTER → 2019-03-19 | Outpatient (CLI) | payer BC ==
--- NOTE | 2019-03-19 08:20 | CT ---
EXAMINATION TYPE: CT brain w con DATE OF EXAM: 03/19/2019 COMPARISON: None. HISTORY: Confusion, memory loss and headache per patient. Altered mental status for order. CT DLP: 1153 mGycm. Automated Exposure Control for Dose Reduction was Utilized. TECHNIQUE: CT scan of the head is performed with IV Contrast, patient injected with 100 mL of Isovu e 300. FINDINGS: The ventricles and sulci are within normal limits in size. Postcontrast images show no santamaria spicious enhancing intraparenchymal mass. The globes are intact bilaterally. There is opacification o f the ethmoid sinuses bilaterally more prominent anteriorly, some mucosal thickening is seen posterio rly. Mild mucosal thickening involving left sphenoid sinus is present. There is partial visualization of mucous retention cysts and/or polyps in the inferior maxillary sinuses. Calcific or bony densitie s left ethmoid sinuses could reflect small osteomas axial image 15. IMPRESSION: Possible acute on chronic paranasal sinus disease, correlate clinically.
== END ==
LOC: RADCTMAIN 06:55
PROVIDERS: ATTEND Family Medicine
DX: R41.82 Altered mental status, unspecified (principal)
CPT/HCPCS: 70460; Q9967

== ENCOUNTER → 2020-03-03 | Outpatient (CLI) | payer BC ==
--- NOTE | 2020-03-03 15:43 | CT ---
EXAMINATION TYPE: CT abdomen pelvis w con DATE OF EXAM: 03/03/2020 COMPARISON: 02/04/18 HISTORY: Right lower quadrant abdominal pain. CT DLP: 1154 mGycm CONTRAST: CT scan of the abdomen and pelvis is performed with Oral Contrast and with IV Contrast, patient injec marek with 100ml mL of Isovue 300. FINDINGS: LUNG BASES-: No visible nodule. No infiltrate. Hiatal hernia. LIVER/GB: No calcified gallstones. No space occupying hepatic lesion. Biliary tree is of normal ca liber. PANCREAS: No inflammation. No distinct mass. SPLEEN: No splenic enlargement. No lesion seen. ADRENALS: Stable bilateral adrenal nodules may reflect adenomas. No thickening. KIDNEYS/BLADDER: No hydronephrosis. No nephrolithiasis. Renal cystic changes noted. Urinary bladder grossly unremarkable. BOWEL: Normal bowel caliber. No inflammation. GENITAL ORGANS: Hysterectomy changes seen. LYMPH NODES: No greater than 1cm abdominal or pelvic lymph nodes are appreciated. AORTA: No significant abnormality. OSSEOUS STRUCTURES: No significant abnormality is seen. OTHER: No significant additional abnormality is seen. IMPRESSION: 1. Stable adrenal adenomas. 2. Stable renal cystic change.
== END | disposition home or self-care (01) ==
LOC: RADCTMAIN 13:20
PROVIDERS: ATTEND Family Medicine
DX: D35.00 Benign neoplasm of unspecified adrenal gland (principal); N28.1 Cyst of kidney, acquired
CPT/HCPCS: 74177; Q9967

== ENCOUNTER 2024-08-21 10:57 | Emergency (ER) | payer BC, OTHER ==
--- NOTE | 2024-08-21 11:15 | ED ---
Chest Pain HPI - General Chief Complaint: Chest Pain Stated Complaint: Chest Pain Time Seen by Provider: 08/21/24 11:05 Source: patient Mode of arrival: wheelchair Limitations: no limitations - History of Present Illness Initial Comments: 48-year-old female with past medical history of Graves' disease, hiatal hernia with repair x 2 who presents emergency department for squeezing chest pain. States it began a couple of days ago but feels like it got worse today. It is located in the central portion of her chest and she describes it as a pressure sensation. No radiation. Admits to associated shortness of breath and lightheadedness. Has some nausea without vomiting. She has no history of cardiac disease. No history of hypertension or high cholesterol. She reports that she saw her primary care doctor a couple of weeks ago and was told that her EKG was abnormal. They were going to schedule some workup however she states she has not had anything completed at this time. She denies history of DVT or PE. No calf pain or swelling. No fevers, chills or cough. No other alleviating, precipitating or modifying factors - Related Data Home Medications Medication Instructions Recorded Confirmed Levothyroxine Sodium [Synthroid] 150 mcg PO DAILY 12/01/16 02/04/18 Allergies Allergy/AdvReac Type Severity Reaction Status Date / Time No Known Allergies Allergy Verified 08/21/24 10:59 Review of Systems ROS Statement: Those systems with pertinent positive or pertinent negative responses have been documented in the HPI. ROS Other: All systems not noted in ROS Statement are negative. Past Medical History Past Medical History: Thyroid Disorder Additional Past Medical History / Comment(s): Graves disease. HIATAL HERNIA REPAIRED 10/03/17. HAS INCISIONAL HERNIA LOWER ABD. History of Any Multi-Drug Resistant Organisms: None Reported Past Surgical History: Appendectomy, Bowel Resection, Hernia Repair, Hysterectomy, Tubal Ligation Additional Past Surgical History / Comment(s): HX ABSCESS ON COLON 2017. COLONOsCOPY. EGD-09/17/17. LAP LILLY FUNDOPLICATION 10/03/17. Past Anesthesia/Blood Transfusion Reactions: No Reported Reaction Past Psychological History: No Psychological Hx Reported Smoking Status: Current every day smoker Past Alcohol Use History: Occasional Past Drug Use History: Marijuana - Past Family History Father Family Medical History: Hypertension Mother Family Medical History: Thyroid Disorder General Exam Limitations: no limitations General appearance: alert, in no apparent distress Head exam: Present: atraumatic, normocephalic, normal inspection Eye exam: Present: normal appearance, PERRL, EOMI. Absent: scleral icterus, conjunctival injection, periorbital swelling ENT exam: Present: normal exam, mucous membranes moist Neck exam: Present: normal inspection. Absent: tenderness, meningismus, lymphadenopathy Respiratory exam: Present: normal lung sounds bilaterally. Absent: respiratory distress, wheezes, rales, rhonchi, stridor Cardiovascular Exam: Present: regular rate, normal rhythm, normal heart sounds. Absent: systolic murmur, diastolic murmur, rubs, gallop, clicks GI/Abdominal exam: Present: soft, normal bowel sounds. Absent: distended, ten derness, guarding, rebound, rigid Extremities exam: Present: normal inspection, full ROM, normal capillary refill. Absent: tenderness, pedal edema, joint swelling, calf tenderness Back exam: Present: normal inspection Neurological exam: Present: alert, oriented X3, CN II-XII intact Psychiatric exam: Present: normal affect, normal mood Skin exam: Present: warm, dry, intact, normal color. Absent: rash Course Vital Signs 08/21/24 08/21/24 08/21/24 10:59 12:30 13:16 Temperature 98.1 F Pulse Rate 104 H 61 65 Respiratory 20 17 18 Rate Blood Pressure 125/81 104/71 128/86 O2 Sat by Pulse 97 99 98 Oximetry Chest Pain MDM - MDM Was pt. sent in by a medical professional or institution (MIKE Maldonado, ROLL TABLE OPERATOR, urgent care, hospital, or residential...) When possible be specific @ -No Did you speak to anyone other than the patient for history (EMS, parent, family, police, friend...)? What history was obtained from this source @ -No Did you review nursing and triage notes (agree or disagree)? Why? @ -I reviewed and agree with nursing and triage notes Were old charts reviewed (outside hosp., previous admission, EMS record, old EKG, old radiological studies, urgent care reports/EKG's, residential records)? Report findings @ -No old charts were reviewed Differential Diagnosis (chest pain, altered mental status, abdominal pain women, abdominal pain men, vaginal bleeding, weakness, fever, dyspnea, syncope, headache, dizziness, GI bleed, back pain, seizure, CVA, palpatations, mental health, musculoskeletal)? @ -Differential Chest Pain: Stable Angina, Unstable Angina, STEMI, NSTEMI Aortic Dissection, Pneumothorax, Musculoskeletal, Esophageal Spasm GERD, Cholecystitis, Pancreatitis, Zoster, this is not meant to be an all-inclusive list. EKG interpreted by me (3pts min.). @ -Yes and demonstrates sinus tachycardia with a rate of 104. DE interval 150. QRS 82. QTc of 398. No acute ST segment elevations or depressions X-rays interpreted by me (1pt min.). @ -Yes and demonstrates no acute process CT interpreted by me (1pt min.). @ -Yes and demonstrates some pulmonary nodules. No PE U/S interpreted by me (1pt. min.). @ -None done What testing was considered but not performed or refused? (CT, X-rays, U/S, labs)? Why? @ -None What meds were considered but not given or refused? Why? @ -None Did you discuss the management of the patient with other professionals (professionals i.e. , PA, ROLL TABLE OPERATOR, lab, RT, psych nurse, director of social work, union organiser, teacher, sheriff officer, patient case manager)? Give summary @ -No Was smoking cessation discussed for >3mins.? @ -No Was critical care preformed (if so, how long)? @ -No Were there social determinants of health that impacted care today? How? (Homelessness, low income, unemployed, alcoholism, drug addiction, transportation, low edu. Level, literacy, decrease access to med. care, retirement, rehab)? @ -No Was there de-escalation of care discussed even if they declined (Discuss DNR or withdrawal of care, Hospice)? DNR status @ -No What co-morbidities impacted this encounter? (DM, HTN, Smoking, COPD, CAD, Cancer, CVA, ARF, Chemo, Hep., AIDS, mental health diagnosis, sleep apnea, morbid obesity)? @ -Hiatal hernia Was patient admitted / discharged? Hospital course, mention meds given and route, prescriptions, significant lab abnormalities, going to OR and other pertinent info. @ -Upon arrival patient seen and evaluated in room 22. Thorough history and physical exam was performed. Patient placed on continuous pulse ox and cardiac monitoring. Twelve-lead EKG is obtained. Laboratory studies are conducted. Patient provided nitro which does not alleviate her symptoms. Chest x-ray demonstrates no acute process. Chest CT is performed which demonstrates no aneurysm, dissection or PE. Patient does have some pulmonary nodules. These are discussed with the patient and the need for primary care surveillance. It is also discussed the thickening of the distal esophagus with concern for hiatal hernia versus mass. Patient has had 2 hiatal hernia repairs. She was given a GI cocktail. At this time I do feel that she should talk to her surgeon about getting another endoscopy. No signs of acute cardiac disease and patient has no risk factors therefore she will be discharged home. I recommend that she follow-up with her primary care doctor for stress test and echo. Return to the emergency room for any new or worsening symptoms. Patient agreeable to plan was discharged in stable condition Undiagnosed new problem with uncertain prognosis? @ -No Drug Therapy requiring intensive monitoring for toxicity (Heparin, Nitro, Insulin, Cardizem)? @ -No Were any procedures done? @ -No Diagnosis/symptom? @ -Acute epigastric abdominal/chest pain, history of hiatal hernia Acute, or Chronic, or Acute on Chronic? @ -Acute Uncomplicated (without systemic symptoms) or Complicated (systemic symptoms)? @ -Complicated Side effects of treatment? @ -No Exacerbation, Progression, or Severe Exacerbation? @ -No Poses a threat to life or bodily function? How? (Chest pain, [place], [place], pneumonia, PE, COPD, DKA, ARF, appy, cholecystitis, CVA, Diverticulitis, Homicidal, Suicidal, threat to staff... and all critical care pts) @ -No Disposition Clinical Impression: Epigastric pain, Pulmonary nodules Disposition: HOME SELF-CARE Condition: Stable Instructions (If sedation given, give patient instructions): Chest Pain (ED) Additional Instructions: Please follow-up with your primary care doctor within 2 to 4 days. I do recommend that they complete an echo and stress test of your heart. Please also follow-up with your surgeon. They may want to do an EGD to evaluate your hiatal hernia. Your chest CT demonstrated pulmonary nodules. These will have to be followed by your primary care doctor yearly. Return for any new or worsen ing symptoms Is patient prescribed a controlled substance at d/c from ED?: No Referrals: Vlad Levi [Primary Care Provider] - 1-2 days Time of Disposition: 14:01
[2024-08-21 11:37] LABS: Basophils # (A) 0.1 k/uL (0-0.2); Basophils % (A) 1 %; Eosinophils # (A) 0.2 k/uL (0-0.7); Eosinophils % (A) 3 %; HCT 41.1 % (34.0-46.0); Lymphocytes # (A) 1.9 k/uL (1.0-4.8); Lymphocytes % (A) 22 %; MCH 33.2 pg (25.0-35.0); MCHC 33.9 g/dL (31.0-37.0); MCV 97.8 fL (80.0-100.0); Mean Platelet Volume 7.6; Monocytes # (A) 0.4 k/uL (0-1.0); Monocytes % (A) 5 %; Neutrophils # (A) 5.8 k/uL (1.3-7.7); Neutrophils % (A) 68 %; Platelet Count 304 k/uL (150-450); RBC 4.21 m/uL (3.80-5.40); RDW 13.2 % (11.5-15.5); WBC 8.5 k/uL (3.8-10.6)
[2024-08-21 11:54] LABS: ALT 14 U/L (4-34); AST 19 U/L (14-36); African American GFR (CKD) >90 (>60 ml/min/1.73 sqM); Albumin 4.6 g/dL (3.5-5.0); Alkaline Phosphatase 90 U/L (38-126); Anion Gap 6 mmol/L; Blood Urea Nitrogen 9 mg/dL (7-17); Calcium 10.2 mg/dL (8.4-10.2); Carbon Dioxide 23 mmol/L (22-30); Chloride 110 mmol/L (98-107); Glucose 109 mg/dL (74-99); Lipase 82 U/L (23-300); Magnesium 2.1 mg/dL (1.6-2.3); Non-African American GFR(CKD) >90 (>60 ml/min/1.73 sqM); Potassium 4.1 mmol/L (3.5-5.1); Sodium 139 mmol/L (137-145); Total Bilirubin 0.6 mg/dL (0.2-1.3); Total Protein 7.3 g/dL (6.3-8.2)
[2024-08-21 12:06] LABS: INR 0.9 (<1.2); Partial Thromboplastin Time 24.1 sec (22.0-30.0); Prothrombin Time 10.3 sec (10.0-12.5)
--- NOTE | 2024-08-21 12:10 | XR ---
EXAMINATION TYPE: XR chest 2V DATE OF EXAM: 08/21/2024 11:42 AM COMPARISON: None CLINICAL INDICATION: Female, 48 years old with history of Chest Pain; [facility] TECHNIQUE: XR chest 2V Frontal and lateral views of the chest. FINDINGS: Lungs/Pleura: There is no evidence of pleural effusion, focal consolidation, or pneumothorax. Pulmonary vascularity: Unremarkable. Heart/mediastinum: Cardiomediastinal silhouette is unremarkable. Musculoskeletal: No acute osseous pathology. IMPRESSION: No acute cardiopulmonary disease/process. [facility], , 08/21/2024 12:07 PM
--- NOTE | 2024-08-21 13:02 | CT ---
EXAMINATION TYPE: CT chest angio for PE DATE OF EXAM: 08/21/2024 12:49 PM COMPARISON: CT 03/03/2020 CLINICAL INDICATION: Female, 48 years old with history of chest pain; CHEST PAIN TECHNIQUE/CONTRAST: CTA scan of the thorax is performed with IV Contrast, patient injected with 70 mL of Isovue 370, MIP images are created and reviewed these are created on a separate workstation.. CT DLP: 256.9 mGycm, Automated exposure control for dose reduction was used. FINDINGS: Lungs/Pleura: No evidence of focal consolidation, pleural effusion or pneumothorax. Left lower lung 1 6 mm pulmonary nodule series 411 image 106. Paraseptal emphysema in centrilobular emphysema changes n oted. Right lower lung medial 7 mm nodule series 411 image 79. Left upper lung 3 mm nodule image 53. Airway: Large airways are patent. Heart: Heart is within normal limits for size. Vasculature: There is no evidence for a filling defect within the pulmonary vasculature to suggest ac [place] pulmonary embolism. The pulmonary artery is of normal size. Mediastinum: No gross evidence of adenopathy. Distal esophagus is thickened first hiatal hernia kumar es. Musculoskeletal: No acute osseous abnormalities Soft Tissues/lymph nodes: Unremarkable. Lower neck: No significant findings. Upper Abdomen: Bilateral adrenal nodules compatible with adrenal adenomas given Hounsfield units near 0. IMPRESSION: 1. No evidence of pulmonary embolism. 2. Right distal esophagus thickening versus hiatal hernia correlate for esophageal mass. Left lower l sarahy pulmonary nodule measuring 16 mm and in the right lower lung measuring 7 mm.Not seen on prior exa m in 2019. Given patient's age and short-term follow-up in 3 months is recommended. Correlate with hi story of malignancy. 3. Bilateral adrenal lipid rich adenomas suggested. Follow up recommendations for incidental pulmonary nodules, if there are any, are per [employer] or [employer]. [email or web address].org/articles/kcloghevzc-[email or web address]?lang=us [facility], , 08/21/2024 1:00 PM
[2024-08-21] MEDS: ASPIRIN 81 MG PO STA (13:12)
[2024-08-21] MEDS: NITROGLYCERIN OINT 1 INCH/GM PACKET TOPICAL STA (13:13)
[2024-08-21] MEDS: MAG HYDROX/AL HYDROX/SIMETH 30 ML, HYOSCYAMINE ELIXIR 10 ML, LIDOCAINE VISCOUS 2% 10 ML PO STA (14:30)
[2024-08-21 14:41] VITALS: BP 97/61; PULSE 66; RESP 17; TEMP 98
== END 2024-08-21 14:41 | disposition home or self-care (01) ==
LOC: EC 10:57
DX: R07.89 Other chest pain (principal); R91.1 Solitary pulmonary nodule; R10.13 Epigastric pain; R00.0 Tachycardia, unspecified; F17.200 Nicotine dependence, unspecified, uncomplicated; Z87.19 Personal history of other diseases of the digestive system
CPT/HCPCS: 36415; 93005; 85379; 80053; 83690; 83735; 84484; 85025; 85610; 85730; 71046; 71275; 99285; Q9967